=== PATIENT | female | born 1945 | race Caucasian/White ===

== ENCOUNTER 2024-09-15 10:02 | Observation (INO) ==
--- NOTE | 2024-08-24 08:27 | PAT Medication Instructions ---
Medication Instructions Date of Service August 24, 2024 Home Medications acetaminophen 650 mg tablet,extended release (Tylenol Arthritis Pain) 1,300 mg PO BID calcium 600 mg capsule 0 mg PO DAILY carboxymethylcellulose sodium 0.5 % eye drops (Refresh Tears) 1 drp ophthalmic (eye) BID diclofenac sodium 1 % topical gel 0 g topical UD PRN Pain duloxetine 20 mg capsule,delayed release 20 mg PO QAM fluticasone propionate 50 mcg/actuation nasal spray,suspension (Aller-Vipul) 2 spray intranasal QAM hydrocortisone-pramoxine 1 %-1 % rectal cream 1 applic [place] UD PRN hemorrhoid flare magnesium 200 mg tablet 400 mg PO DAILY metoprolol succinate 25 mg tablet,extended release 24 hr 25 mg PO QAM [id number] 8 mg-folic 400 mcg-K 50 mcg-lutein 300 mcg tablet (Centrum Silver Women) 1 tab PO DAILY pramoxine-benzyl alcohol 1 %-10 % topical gel (ITCH-X) 1 applic topical UD PRN bug bites rosuvastatin 10 mg tablet 10 mg PO QAM sodium hyaluronate (viscosup) 10 mg/mL(mw 2.4-3.6 million)intra-articular syringe (Euflexxa) 0 mg intra-articular UD zinc 50 mg tablet 50 mg PO DAILY ASK your prescriber and surgeon sodium hyaluronate (viscosup) 10 mg/mL(mw 2.4-3.6 million)intra-articular syringe (Euflexxa) 0 mg intra-articular UD STOP taking 24 hours before surgery diclofenac sodium 1 % topical gel 0 g topical UD PRN Pain hydrocortisone-pramoxine 1 %-1 % rectal cream 1 applic AK UD PRN hemorrhoid flare pramoxine-benzyl alcohol 1 %-10 % topical gel (ITCH-X) 1 applic topical UD PRN bug bites DO NOT take the morning of surgery calcium 600 mg capsule 0 mg PO DAILY magnesium 200 mg tablet 400 mg PO DAILY Centrum Silver Women) 1 tab PO DAILY zinc 50 mg tablet 50 mg PO DAILY Take morning of surgery With a small sip of water, OTHERWISE NOTHING TO EAT OR DRINK AFTER MIDNIGHT: acetaminophen 650 mg tablet,extended release (Tylenol Arthritis Pain) 1,300 mg PO BID carboxymethylcellulose sodium 0.5 % eye drops (Refresh Tears) 1 drp ophthalmic (eye) BID duloxetine 20 mg capsule,delayed release 20 mg PO QAM fluticasone propionate 50 mcg/actuation nasal spray,suspension (Aller-Vipul) 2 spray intranasal QAM metoprolol succinate 25 mg tablet,extended release 24 hr 25 mg PO QAM rosuvastatin 10 mg tablet 10 mg PO QAM Take evening before surgery acetaminophen 650 mg tablet,extended release (Tylenol Arthritis Pain) 1,300 mg PO BID carboxymethylcellulose sodium 0.5 % eye drops (Refresh Tears) 1 drp ophthalmic (eye) BID Other Notes If you have any questions please call us at [phone] or [phone] or [phone] or [phone]
--- NOTE | 2024-09-01 11:13 | Anesthesiology Consultation ---
Date of Service September 01, 2024 Assessment & Plan (1) Encounter for pre-operative examination: Chart Review Chart Review: Acceptable Risk for Surgery (pending cardio note 08/26/24, Holter monitor (if available), and upcoming ECHO 09/09/24) and Patient seen in Pre Admission Testing - Please fax for cardio note from 08/26/24 (Dr. Macario ([facility]), Holter monitor (done 08/26/24-08/27/24) - Please obtain ECHO scheduled 09/09/24 with [facility] - Await S PCP phone note response from 08/31/24 re: mild anemia (Patient usually follows with [facility] Cardio but was unable to get preop appt- was seen by [facility]- Dr Macario) - Patient is NOT an ideal OPJ candidate (currently 23 hour obs) Per PAT appt on 09/01/24, no recent illness/disease exposures, illness related symptoms, or recent illness/disease positive tests. Will leave to surgeon's discretion if preop Covid testing needed Patient seen by PCP 08/30/24= seen for preop evaluation. Check labs. As long as they are stable, patient is cleared for surgery form a general perspective. Will need to be cleared from a cardiac perspective by cardiology. Teaching & Discussion Pre-Anesthesia Teaching/Discussion Notes: Instructed NPO after midnight before surgery,except medications with 15 cc of water. Medication instructions provided according to the PAT guidelines. History Surgery Operation Date: 09/15/24 07:15 Proposed Procedures p Right Shoulder Reverse Total Shoulder Arthroplasty, Open Biceps Tenodesis - Osiel Caro MD Height/Weight Height: 5 ft 7 in Weight: 54.6 kg Allergies Allergy/AdvReac Type Severity Reaction Status Date / Time celecoxib Allergy Unknown Rash Verified 08/23/24 13:27 Sulfa (Sulfonamide Allergy Unknown ? rash, pt Verified 08/23/24 13:27 Antibiotics) not sure it was a long time ago Medications Home Medications Medication Instructions Recorded Confirmed Last Taken acetaminophen 650 mg 1,300 mg PO BID 08/23/24 08/23/24 Unknown tablet,extended release (Tylenol Arthritis Pain) calcium 600 mg capsule 0 mg PO DAILY 08/23/24 08/23/24 Unknown carboxymethylcellulose sodium 0.5 1 drp ophthalmic (eye) BID 08/23/24 08/23/24 Unknown % eye drops (Refresh Tears) diclofenac sodium 1 % topical gel 0 g topical UD PRN Pain 08/23/24 08/23/24 Unknown duloxetine 20 mg capsule,delayed 20 mg PO QAM 08/23/24 08/23/24 Unknown release fluticasone propionate 50 2 spray intranasal QAM 08/23/24 08/23/24 Unknown mcg/actuation nasal spray,suspension (Aller-Vipul) hydrocortisone-pramoxine 1 %-1 % 1 applic RI UD PRN hemorrhoid flare 08/23/24 08/23/24 Unknown rectal cream magnesium 200 mg tablet 400 mg PO DAILY 08/23/24 08/23/24 Unknown metoprolol succinate 25 mg 25 mg PO QAM 08/23/24 08/23/24 Unknown tablet,extended release 24 hr [id number] 8 mg-folic 400 1 tab PO DAILY 08/23/24 08/23/24 Unknown mcg-K 50 mcg-lutein 300 mcg tablet (Centrum Silver Women) pramoxine-benzyl alcohol 1 %-10 % 1 applic topical UD PRN bug bites 08/23/24 08/23/24 Unknown topical gel (ITCH-X) rosuvastatin 10 mg tablet 10 mg PO QAM 08/23/24 08/23/24 Unknown sodium hyaluronate (viscosup) 10 0 mg intra-articular UD 08/23/24 08/23/24 Unknown mg/mL(mw 2.4-3.6 million)intra-articular syringe (Euflexxa) zinc 50 mg tablet 50 mg PO DAILY 08/23/24 08/23/24 Unknown Past Medical History Medical History Anxiety History of fracture of pelvis (04/2024) "hairline" - healed/continues with pt. History of gastroesophageal reflux (GERD) well controlled and stable History of postoperative nausea and vomiting Hyperlipidemia Osteopenia Paroxysmal atrial tachycardia dx 2021- well controlled with Metoprolol - follows with [facility] cardio- stable and well controlled at 02/2024 annual visit Exercise / Class Metabolic Activity III < 4 Walking/Shop/Light housework (one flight of stairs - no chest pain, mild SOB ) Past Family History Family History Sister Family history of reaction to anesthesia with ear operation, pt was told they almost lost her, i think they said she did stop breathing. unknown further details. Past Surgical History Surgical History History of colonoscopy History of left hip replacement History of right hip replacement History of surgery on right wrist for fx/denies hardware. Past Anesthesia History No Hx of Anesthesia Complications (with exception to PONV) and No Family Hx of Anesthesia Complications (with exception to sister- had surgery - "stopped breathing" - specifics unknown - patient denies personal issues ) History of PONV History of PONV (significant ) and Hx of Motion Sickness Social History Smoking Status: Never smoker Do You Dip or Chew Tobacco: No Alcohol type: hard liquor alcohol intake frequency: other Alcohol Intake Frequency Comment: 2-3 drinks per day Hx Substance Use: No substance use type: does not use Review of Systems - Jun 2024- was having SOB (similar to symptoms in 2020- started on Metoprolol)- has resolved (felt possibly due to hip fracture and healing process) (cardio aware- reason for updated Holter monitor and upcoming ECHO) - Chronic cough due to chronic post nasal drip- stable/mild - Hx of blood transfusion - with previous surgeries (years ago) Patient denies chest pain, current shortness of breath, wheezing, palpitations. No hx of seizures, stroke, PR, apnea/snoring. No hx of blood clots Physical Exam Vital Signs VITALS BP 151/88 (usually well controlled) P 60 TEMP 97.8 SP02 97% RESP 16 Constitutional no acute distress ENMT Mouth: no TMJ clicking Thyromental Distance: > or= 3.5 Finger Breadths (3.5) Mallampati Class: I Neck neck extension not limited Respiratory normal respiratory effort; no respiratory distress Auscultation: lungs clear to auscultation bilaterally; no wheezes Cardiovascular Rate/Rhythm: regular rate and regular rhythm Heart Sounds: no murmur Vessels: no carotid bruit Musculoskeletal Spine: no pain with cervical ROM Extremities: extremities normal to inspection Psychiatric Orientation: alert Lab Results Anesthesia Preop Results Results Anesthesia Widget: PTT 31 Seconds (21-31) 09/01/24 Urine Color Yellow 09/01/24 Urine Appearance Turbid (Clear) A 09/01/24 Urine pH 7.0 (4.5-7.5) 09/01/24 Urine Specific [place] 1.022 (1.000-1.030) 09/01/24 Urine Protein Negative (Negative) 09/01/24 Urine Glucose (UA) Negative (Negative) 09/01/24 Urine Ketones Trace (Negative) H 09/01/24 Urine Blood Negative (Negative) 09/01/24 Urine Nitrite Negative (Negative) 09/01/24 Urine Bilirubin Negative (Negative) 09/01/24 Urine Urobilinogen Negative (Negative) 09/01/24 Urine Leukocyte Esterase Negative (Negative) 09/01/24 Urine WBC (Auto) 0-5 /hpf (0-5) 09/01/24 Urine RBC (Auto) 6-10 /hpf (0-2) H 09/01/24 Urine Hyaline Casts (Auto) 0-2 /lpf (0-2) 09/01/24 Urine Epithelial Cells (Auto) 0-2 /hpf (0-2) 09/01/24 Urine Bacteria (Auto) None Seen (None Seen) 09/01/24 Blood Type A Positive 09/01/24 Antibody Screen NEGATIVE 09/01/24 Testing Laboratory Results 08/30/24= WBC: 6.96 H/H: 11.3/37.7 (mild anemia- PCP aware) PLATELETS: 394 SODIUM: 141 POTASSIUM: 4.3 CHLORIDE: 98 CO2: 31 BUN: 19 CREATININE: 0.6 GLUCOSE: 75 PT: 13.3 INR: 1.0 Electrocardiogram Date: 08/26/24 Findings: + NSR @ (63bpm) Minimal voltage criteria for LVH, may be normal variant Early repolarization Chest X-Ray Date: 09/01/24 Findings: + NAD FINDINGS: Heart size and pulmonary vasculature are normal. Lungs are mildly hyperexpanded. No effusion or consolidation. Stress Test Date: 03/04/23 Type: DSE Exercise ECHO is normal without resting LV wall motion abnormalities or inducible ischemia MPHR 90% EKG response was normal Patient give IV dobutamine. Normal HR and BP response to dobutamine infusion. Calculated EF 70% Mild to moderate MR Mild TR
--- NOTE | 2024-09-13 19:35 | History & Physical Report ---
Date of Service September 13, 2024 Assessment & Plan (1) Osteoarthritis of right glenohumeral joint: Plan: Severe end-stage glenohumeral osteoarthritis right shoulder with rotator cuff tendinopathy as well and biceps tendinopathy. Best treatment option is to proceed with reverse total shoulder arthroplasty with biceps tenodesis. (2) Tendinopathy of right rotator cuff: (3) Biceps tendinopathy of right upper extremity: History of Present Illness Chief Complaint: Chronic right shoulder pain Primary Care Provider: NO PCP Chronic right shoulder pain failed conservative management presenting for shoulder replacement Patient denies headaches, sweats, fevers, chills, double vision, blurred vision, cough, sore throat, dysphagia, chest pain, sob at rest, wheezing, n/v/d/c, numbness, tingling, fatigue, urinary symptoms, mood disorders. ROS positive for shortness of breath with activity like running or shoveling or climbing stairs, regular heartbeat with palpitations, osteoarthritis of spine, acid reflux. Allergies Allergy/AdvReac Type Severity Reaction Status Date / Time celecoxib Allergy Unknown Rash Verified 08/23/24 13:27 Sulfa (Sulfonamide Allergy Unknown ? rash, pt Verified 08/23/24 13:27 Antibiotics) not sure it was a long time ago Home Medications Medication Instructions Recorded Confirmed Type acetaminophen 650 mg 1,300 mg PO BID 08/23/24 08/23/24 History tablet,extended release (Tylenol Arthritis Pain) calcium 600 mg capsule 0 mg PO DAILY 08/23/24 08/23/24 History carboxymethylcellulose sodium 0.5 1 drp ophthalmic (eye) BID 08/23/24 08/23/24 History % eye drops (Refresh Tears) diclofenac sodium 1 % topical gel 0 g topical UD PRN Pain 08/23/24 08/23/24 History duloxetine 20 mg capsule,delayed 20 mg PO QAM 08/23/24 08/23/24 History release fluticasone propionate 50 2 spray intranasal QAM 08/23/24 08/23/24 History mcg/actuation nasal spray,suspension (Aller-Vipul) hydrocortisone-pramoxine 1 %-1 % 1 applic [place] UD PRN hemorrhoid flare 08/23/24 08/23/24 History rectal cream magnesium 200 mg tablet 400 mg PO DAILY 08/23/24 08/23/24 History metoprolol succinate 25 mg 25 mg PO QAM 08/23/24 08/23/24 History tablet,extended release 24 hr [id number]-[id number] 8 mg-folic 400 1 tab PO DAILY 08/23/24 08/23/24 History mcg-K 50 mcg-lutein 300 mcg tablet (Centrum Silver Women) pramoxine-benzyl alcohol 1 %-10 % 1 applic topical UD PRN bug bites 08/23/24 08/23/24 History topical gel (ITCH-X) rosuvastatin 10 mg tablet 10 mg PO QAM 08/23/24 08/23/24 History sodium hyaluronate (viscosup) 10 0 mg intra-articular UD 08/23/24 08/23/24 History mg/mL(mw 2.4-3.6 million)intra-articular syringe (Euflexxa) zinc 50 mg tablet 50 mg PO DAILY 08/23/24 08/23/24 History Past Med/Surg History Problem List (Updated 09/13/24 @ 19:34 by Osiel Caro MD) Biceps tendinopathy of right upper extremity Tendinopathy of right rotator cuff Osteoarthritis of right glenohumeral joint Encounter for pre-operative examination Medical History Aortic stenosis Mild- noted on 09/09/24 ECHO Paroxysmal atrial tachycardia dx 2021- well controlled with Metoprolol - follows with [facility] cardio- stable and well controlled at 02/2024 annual visit Osteopenia History of fracture of pelvis (04/2024) "hairline" - healed/continues with pt. History of postoperative nausea and vomiting Anxiety History of gastroesophageal reflux (GERD) well controlled and stable Hyperlipidemia Surgical History History of surgery on right wrist for fx/denies hardware. History of left hip replacement History of right hip replacement History of colonoscopy Family History Sister Family history of reaction to anesthesia with ear operation, pt was told they almost lost her, i think they said she did stop breathing. unknown further details. Social History Smoking Status: Never smoker Second Hand Exposure: Yes; Do You Dip or Chew Tobacco: No; Hx Substance Use: No Preferred Language: Thai Communication Ability: Effective Vp Research Required: No Beliefs That Will Affect Care: None Current Living Situation: Spouse Other Information That Helps Us Care for You: No Feels Safe at Home: Yes Assistive Devices: Glasses Review of Systems All systems reviewed & are unremarkable except as noted in HPI & below Physical Exam Constitutional: WD/WN, vitals as above Respiratory: normal respiratory effort; no respiratory distress Cardiovascular: Rate/Rhythm: regular rate and regular rhythm Musculoskeletal: Right shoulder exam with abnormal rhythm glenohumeral crepitation positive speeds belly press Larry and Neer signs. Painful decreased range of motion w ith 100 degrees of flexion 70 degrees abduction 80 degrees external rotation and 40 degrees internal rotation. Opposite shoulder also has decreased range of motion not as severe. Distal neurocirculatory exam all normal. Skin: no rashes, warm and dry Neurologic: normal touch/pain/proprioception Psychiatric: A+Ox3, euthymic affect Results & Data Diagnostic Findings X-rays demonstrate grade 4 osteoarthritis glenohumeral joint. MRI demonstrates supraspinatus tendinopathy and areas of full-thickness tearing and marked inflammation around the shoulder joint synovitis and fluid collections around the subscapularis tendon. There is tenosynovitis of the biceps tendon with biceps tendinopathy.
[~2024-09-15 10:02] MED LIST: BUPIVACAINE 0.5 % 5 MG/1 ML PF 10ML VIAL ONE
[2024-09-15] MEDS ORDERED: LIDOCAINE 2% 2 ML VIAL/AMP(20MG/ML) INFIL ONE ×3 (10:08→13:02)
[2024-09-15] MEDS ORDERED: PROPOFOL IV EMULSION 10 MG/ML 20 ML VIAL IV ONE (10:08)
[2024-09-15] MEDS ORDERED: fentaNYL citrate PF 100 MCG/2 ML VIAL ONE (10:08)
[2024-09-15] MEDS ORDERED: ONDANSETRON INJ 2 MG/ML 2 ML VIAL ONE (10:08)
[2024-09-15] MEDS ORDERED: MIDAZOLAM HCL 1 MG/ML 2ML VIAL ONE (10:08)
[2024-09-15] MEDS ORDERED: ROCURONIUM BROMIDE 10 MG/ML 5 ML VIAL IV ONE ×2 (10:10→14:23)
[2024-09-15] MEDS: LR 15ML/HR IV SCH (10:37)
[2024-09-15] MEDS: FAMOTIDINE 20 MG TAB PO SCH (10:38)
[2024-09-15] MEDS: ACETAMINOPHEN 500 MG TAB PO SCH ×2 (10:38→22:30)
[2024-09-15] MEDS: METOCLOPRAMIDE HCL 10 MG TABLET PO SCH (10:38)
[2024-09-15] MEDS: GABAPENTIN 300 MG CAP PO SCH (10:39)
[2024-09-15] MEDS: LR 60ML/HR IV SCH (10:39)
[2024-09-15] MEDS: dexAMETHasone**PF** 10 MG/ML VIAL IV SCH (10:39)
[2024-09-15] MEDS ORDERED: ONDANSETRON INJ 2 MG/ML 2 ML VIAL IV PRN (11:17)
[2024-09-15] MEDS ORDERED: fentaNYL citrate PF 100 MCG/2 ML VIAL IV PRN (11:17)
[2024-09-15] MEDS ORDERED: PROMETHAZINE HCL 6.25 MG in SODIUM CHLORIDE 0.9% 50 ML IV PRN (11:17)
[2024-09-15] MEDS ORDERED: HYDROmorphone INJ 1 MG/ML SYRINGE IV PRN (11:17)
[2024-09-15] MEDS ORDERED: ePHEDrine sulfate 50 MG/ML AMP IV PRN (11:17)
[2024-09-15] MEDS ORDERED: ATROPINE SULFATE 0.1 MG/ML 10ML SYR IV PRN (11:17)
[2024-09-15] MEDS: TRANEXAMIC ACID 1,000 MG **IV Pre-op IV SCH (12:28)
--- NOTE | 2024-09-15 12:30 | History & Physical Bridge Note ---
Date of Service September 15, 2024 History & Physical Bridge Note I have examined the patient, reviewed the History & Physical and in the interval since the performance of the History & Physical I have noted the following changes of clinical significance: no changes noted
[2024-09-15] MEDS: ceFAZolin 2000MG 2,000 MG/15 ML SYR IV SCH ×2 (12:57→20:35)
[2024-09-15] MEDS ORDERED: ePHEDrine sulfate 50 MG/5 ML SYR ONE (13:21)
[2024-09-15] MEDS ORDERED: SUGAMMADEX SODIUM 200 MG/2 ML VIAL IV ONE ×2 (13:38→15:01)
--- OUTSIDE RECORDS SUMMARY | 2024-09-15 14:20 | External Medical Summary | Summary of Care ---
Author Name Unknown Organization [facility] Address [address] [facility] [place] [address] Phone [phone] Care Team Providers Care Insurance Salesperson Name Role Phone Santhosh Lyle MD Primary Care Provider [phone] Reason for Visit * Reason Onset Date Comments Test Results Lab 09/03/2024 Encounter Details Date Type Department Care Team (Late st Contact Info) Description 09/03/2024 Telephone [facility] [place] [address] [place] [address] Alicia Enriquez MD [address] [place] [address] Test Results Lab Allergies Active Allergy Reactions Criticality Noted Date Comments Bactrim 11/24/2013 unaware Celecoxib 11/24/2013 rash Alendronate 03/08/2021 Bone necrosis of jaw Sulfa Antibiotics Hives 12/10/2011 Sulfamethoxazole 03/04/2024 documented as of this encounter (statuses as of 09/10/2024) Medications MAGNESIUM 400 MG PO CAPS one daily Active Multiple Vitamins-Mineral s (CENTRUM SILVER) Tablet Take 1 Tablet by mouth in the morning. Active Fluticasone Propionate 50 MCG/ACT Nasal Suspension Administer 1 [place] into nostril in the morning. Active Calcium Carb-Cholecalcif va 500-400 MG-UNIT Oral Tablet Take 2 Tabs by mouth daily. Active Carboxymeth-Glyc luisa-Polysorb 0.5-1-0.5 % Ophthalmic Solution Instill into eye 2 times a day. Active Pramoxine-Benzyl Alcohol 1-10 % External Gel Apply topically to affected area. Apply to bites Active Zinc 50 MG Oral Capsule Take 1 Capsule by mouth in the morning. Active Azelastine HCl 0.1 % Nasal Solution Administer 2 Sprays into nostril in the morning. 30 mL 12 2 Active Additional Information Patient not taking.Reported on 08/30/2024 Triamcinolone Acetonide 0.5 % External Cream (Aristocort)Mitzy cations:Rash and nonspecific skin eruption To affected area once a day or as needed for itching. 15 g 1 3 Active Additional Information Patient not taking.Reported on 05/05/2024 Polyethylene Glycol 3350 17 GM/SCOOP Oral Powder (MiraLax) Take 17 g by mouth in the morning. One cap full in juice, to effect 1 stool per day. .. 510 g 1 3 Active Additional Information Patient not taking.Reported on 05/05/2024 Diclofenac Sodium 1 % External Cream Apply topically to affected area. Apply to right knee 3x a day Active Hydrocortisone (Perianal) 2.5 % External Cream (Procto-Med HC) Administer into the rectum 2 times a day as needed for Hemorrhoids. Active Euflexxa 20 MG/2ML Intra-articular Solution Prefilled Syringe (Sodium Hyaluronate (Viscosup)) Inject into the joint once. Active Camphor-Menthol 0.5-0.5 % External Lotion (Sarna) Apply topically to affected area as needed for Itching. Apply to arms Active Acetaminophen 500 MG Oral Tablet (Tylenol) Take 2 Tablets by mouth every 8 hours as needed for Pain, Mild or Pain, Moderate. 30 Tablet 04/27/2024 9:37 AM EST 4 Active oxyCODONE HCl 5 MG Oral Tablet (Oxy IR) Take 1 Tablet by mouth every 8 hours as needed for Pain, Severe. 20 Tablet 04/27/2024 9:37 AM EST 4 Active Additional Information Patient not taking.Reported on 05/05/2024 Lidocaine 4 % External Patch (Aspercreme) Place 1 Patch over 12 hours topically on the skin daily. 30 Patch 4 Active Additional Information Patient not taking.Reported on 08/30/2024 Metoprolol Succinate ER 25 MG Oral Tablet Extended Release 24 Hour (toPROL XL) TAKE 1 TABLET BY MOUTH DAILY IN THE MORNING 30 Tablet 11 5 Active documented as of this encounter (statuses as of 09/10/2024) Active Problems Problem Noted Date Diagnosed Date Closed nondisplaced fracture of posterior wall of left acetabulum 04/25/2024 Fall 04/25/2024 Ambulatory dysfunction 04/25/2024 PAT (paroxysmal atrial tachycardia) 01/05/2024 Family history of dementia 01/03/2023 Primary osteoarthritis of right knee 03/08/2021 Hip joint replacement status 11/06/2019 Depression with anxiety 07/14/2018 Lymphocytic colitis 10/03/2017 History of osteoporosis Dyslipidemia Overview (10/09/2015): ICD-10 update of inactive term documented as of this encounter (statuses as of 09/10/2024) Resolved Problems Problem Noted Date Diagnosed Date Resolved Date Numerous skin moles 12/27/2021 12/28/19 22 Closed fracture of left hip 11/06/2019 01/31/2020 Gait abnormality 11/06/2019 01/31/2020 Pain of left hip joint 11/06/201901/30 Avulsion fracture of calcaneus 05/15/2015 07/14/2018 AK (actinic keratosis) 06/16/201407/14 Other seborrheic keratosis 06/16/2014 1 07/25/2015 Solar lentigo 06/16/2014 07/14/2018 Unspecified disease of nail 01/01/2012 05/24/2016 Overview (09/08/2024): Has a tiny sathish of pigment seemingly in the nail plate distally and radially on the L thumbnail-she just noticed it Suggest that she watch and make sure it migrates outward over the next couple of months; I suspect it is a FB ICD-10 Update of Inactive Term Mole of skin 12/10/2011 05/24/2016 Overview (09/08/2024): Tip of L great toe 0.3cm for <2cm Will follow in 6M Chandra Eason MD 12/10/2011 10:06 AM ICD-10 Update of Inactive Term NONE 01/25/2009 01/25/2009 Favor Benign Papule at L Nasal Tip 01/25/2009 07/14/2018 Anemia 07/14/2018 Overview (03/10/2017): ICD-10 update of inactive term documented as of this encounter (statuses as of 09/10/2024) Immunizations Name Administration Dates Next Due COVID-19 mRNA, LNP-s, No Pre serve, 2-Dose Series (Pfizer) 01/01/2022,03/31/2021,09/12/2020,08/22 COVID-19, MRNA-LNP, PF, 30 M CG/0.3 mL, 12 YRS AND ABOVE, IM (PFIZER-Comirnaty) 02/23/2024,04/25/2023 Pneumococcal Conjugate Vacc, 13 Valent (Prevnar) 11/08/2015 Pneumococcal Conjugate Vacci ne, 20-valent ([id number]) 05/05/2024 Pneumococcal Polysaccharide PPV23 (Pneumovax) 12/09/2011 Season Influenza, Quad, PF, Adjuvanted, 65+ Yrs, IM (FLUAD) 03/23/2020 Seasonal Influenza Vac., MDV , IM, 0.5 mL (Fluzone) 03/29/2014,03/16/2013,03/18/2012,03/20,03/22/2010,03/29/2009,03/23/2008 Seasonal Influenza, PF, 6 M & above, IM , (FluLaval or Fluzone) 03/17/2019,03/16/2018,03/28/2017 Seasonal Influenza, Quadriva lent Hd (Fluzone Hd) 02/23/2024,02/07/2023,03/08/2021 Seasonal Influenza, Quadriva lent, No Preserve, IM 03/12/2016,03/22/2015 TD, Preservative Free 01/13/2019 TDAP, Age 7 and older, IM (Adacel) 01/03/2010 Varicella Zoster Vaccine Alexey lt (Zostavax) 09/08/2007 Zoster Vaccine Recombinant (Shingrix) 07/16/2019 ,01/13/2019 documented as of this encounter Social History Tobacco Use Types Packs/Day Years Used Date Smoking Tobacco: Never Smokeless Tobacco: Never Comments: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 Never true 08/31/19 25 Within the past 12 months, t he food you bought just didn't last and you didn't have money to get more. Never true 08/30/2024 Childcare Answer Date Recorded Do you feel overwhelmed with taking care of a child, family member or friend? No 08/30/2024 Does your family need help f inding childcare? (Household - for ages 0-17 years) Not on file 08/30/2024 Clothing Answer Date Recorded Have you been unable to get clothing when it was really needed? No 08/30/2024 Is your family able to get c lothes or diapers when needed? (Household - for ages 0-17 years) Not on file 08/30/2024 Personal Safety Answer Date Recorded Do you feel unsafe or have concerns for your saf ety? No 08/30/2024 Do you have concerns for you r family's safety? (Household - for ages 0-17 years) Not on file 08/30/2024 Utilities Answer Date Recorded Do you have trouble paying y our heating, water, or electric bill? No 08/30/2024 Is your family able to pay t he heat, water, or electric bill? (Household - for ages 0-17 years) Not on file 08/30/2024 Does your family have access to good internet? (Household - for ages 0-17 years) Not on file 08/30/2024 Employment Status Answer Date Recorded Are you unemployed or without regular income? No 08/30/2024 Does the household have a re gular source of income? (Household - for ages 0-17 years) Not on file 08/30/2024 Social Connections Answer Date Recorded How often do you feel lonely or isolated from th ose around you? Rarely 08/30/2024 Financial Resource Strain Answer Date R ecorded Do you have any trouble payi ng for your medications, or do you think you might in the future? No 08/30/2024 Does your family have troubl e paying for medicine? (Household - for ages 0-17 years) Not on file 08/30/2024 Transportation Needs Answer Date Record ed Do you have trouble getting a ride to medical visits or work? (Adult - for ages 18 years and over) Not on file 08/30/2024 Does your family have a hard time getting a ride to doctors visits? (Household - for ages 0-17 years) Not on file 08/30/2024 Has lack of transportation k ept you from medical appointments, meetings, work, or from getting things needed for daily living? Check all that apply. No 08/30/2024 Do you (or your family) have trouble finding or paying for a ride (transportation)? (Household - for ages 0-17 years) Not on file 08/30/2024 Housing Stability Answer Date Recorded Do you currently live in a s helter or have no steady place to sleep at night? No 08/30/2024 Do you think you are at risk of becoming homeless? (Adult - for ages 18 years and over) Not on file 08/30/2024 Does your family worry about paying for your home or becoming homeless? (Household - for ages 0-17 years) Not on file 0 08/30/2024 Are you homeless or worried that you might be in the future? No 08/30/2024 Are you (or your family) rabia eless or worried that you might be in the future? (Household - for ages 0-17 years) Not on file Food Insecurity Answer Date Recorded Do you need food for this week? No 04/25/2024 Are you able to get enough f ood for your family? (Household - for ages 0-17 years) Not on file 04/25/2024 Does your family need food t his week? (Household - for ages 0-17 years) Not on file 04/25/2024 Do you always have enough fo od for your family? (Household - for ages 0-17 years) Not on file 04/25/2024 Food Insecurity Answer Date Recorded Within the past 12 months, y ou worried that your food would run out before you got the money to buy more. Never true 08/31/19 25 Within the past 12 months, t he food you bought just didn't last and you didn't have money to get more. Never true 08/30/2024 Do you need food for this week? 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 Answer Date of Assessment Author No 04/25/2024 7:04 PM Holly Juarez RN * Are you blind or do you have serious difficulty seeing, even when wearing glasses? Answer Date of Assessment Author No 04/25/2024 7:04 PM Holly Juarez RN * Do you have serious difficulty walking or climbing stairs? (5 years old or older) Answer Date of Assessment Author No 04/25/2024 7:04 PM Holly Juarez RN * Do you have difficulty dressing or bathing? (5 years old or older) Answer Date of Assessment Author No 04/25/2024 7:04 PM Holly Juarez RN * Because of a physical, mental, or emotional condition, do you have difficulty doing errands alone such as visiting a doctor’s office or shopping? (15 years old or older) Answer Date of Assessment Author No 04/25/2024 7:04 PM Holly Juarez RN documented as of this encounter Mental Status * Because of a physical, mental, or emotional condition, do you have serious difficulty concentrating, remembering, or making decisions? (5 years old or older) Answer Entry Date Author No 04/25/2024 7:04 PM Holly Juarez RN documented in this encounter Miscellaneous Notes * Telephone Encounter - Wally Toribio LPN - 09/10/2024 10:03 AM EDT "Patient having R shoulder replacement surgery on 09/15 at [facility] with Dr. Caro." - Pre-op appt 08/30/2024 The patients iron is on the low end of normal. Please advise. * Telephone Encounter - Cisco Wray OSA - 09/10/2024 9:39 AM EDT Needs clarification on if the procedure needs to be postponed until the lab work is completed or isit okay to proceed with procedure pcp with follow up with the anemia post operatively? * Telephone Encounter - Urvashi Farr LPN - 09/08/2024 3:47 PM EDT Patient aware and verbalized understanding * Telephone Encounter - Gaby Smith OSA - 09/08/2024 3:40 PM EDT Reason for patient's call: Pt returning call; message relayed and has further questions as to when these labs need to be competed. Caller was transferred to [place] at the nurse line. * Telephone Encounter - Wally Toribio LPN - 09/08/2024 10:00 AM EDT I left a message with the pt's Roddy to have the patient call back. If the patient calls back please inform her that she needs nonfasting labs for B12, Iron, and FolicAcid. She can do that any [facility] lab facility. * Telephone Encounter - Wally Toribio LPN - 09/07/2024 2:40 PM EDT VM box not setup If the patient calls back please inform her that she needs nonfasting labs for B12, Iron, and FolicAcid. She can do that any [facility] lab facility. * Addendum Note - Joo Parada PA-C - 09/07/2024 2:21 PM EDTAddended by: JOO PARADA on: 09/07/2024 02:21 PM Modules accepted: Orders * Telephone Encounter - Joo Parada PA-C - 09/07/2024 2:21 PM EDT Add on iron studies, folate, and B12 level. * Telephone Encounter - Brittani Harmon LPN - 09/07/2024 1:17 PM EDT Patient aware and has not noticed any bruising or bleeding. * Telephone Encounter - Alicia Enriquez MD - 09/07/2024 12:38 PM EDT Please try to get pt her message again * Telephone Encounter - Alicia Enriquez MD - 09/03/2024 9:03 AM EDT Patient did not read her Handprint message: " You were a bit anemic on your labs. Have you noticed any abnormal bruising or bleeding? Joo Parada PA-C Please check with the patient documented in this encounter Plan of Treatment Upcoming Encounters Date Type Department Care Team (Late st Contact Info) Description 01/03/2025 8:30 AM EDT Laboratory Laboratory, [place] [address] [place] [id number] [place], Lab [address] [place] [address] 01/05/2025 9:00 AM EDT Office Visit Family Practice, [place] [address] [place] [address] Santhosh Lyle MD [address] [place] [address] 02/28/2025 1:30 PM EDT Office Visit Dermatology, [place] [address] [address] [place] [address] Griselda Woodard PA-C [address] [place] [address] 03/09/2025 10:00 AM EDT Office Visit Cardiology, [place] [address] [place] [address] Daisy Sprague PA-C [address] [place] [address] Pending Results Name Type Priority Associated Diagnoses Date /Time FOLIC ACID Lab Routine Anemia, unspecified type 09/09/2024 7:33 AM EDT Scheduled Orders Name Type Priority Associated Diagnoses Orde r Schedule FOLIC ACID Lab Routine Anemia, unspecified type Expected: 09/07/2024 (Approximate), Expires: 09/07/2025 Scheduled Procedures Name Priority Associated Diagnoses Date/Ti me COLONOSCOPY FLEXIBLE PROXIMA L DIAGNOSTIC Recall Screening for colon cancer Health Maintenance Due Date Last Done Comments Adult Wellness Visit 2012 COVID-19 Vaccine ( season) 2024 02/23/2024, 04/25/2023, 01/01/2022, Additional history exists Depression Monitoring 01/04/2025 01/05/2024 DXA Scan 07/15/2027 07/15/2023, 10/2020, 07/07/2018, Additional history exists DTap/Tdap Vaccines (3 - Td or Tdap) 01/13/2029 01/13/2019, 01/03/2010 Colonoscopy 08/21/2033 08/22/2023, 08/07, 05/23/2017, Additional history exists Fecal Occult Blood Test Discontinued 07/08/2016 Zoster Vaccines Completed 07/16/2019, 12/2018, 09/08/2007 Influenza Vaccine (FLU shot) Completed 02/23/2024, 02/07/2023, 03/08/2021, Additional history exists Pneumococcal Vaccine: 50+ Years Completed 05/05/2024, 11/08/2015, 12/09/2011 HPV (Gardasil) Vaccine Aged Out No lo nger eligible based on patient's age to complete this topic Hepatitis B Vaccine Aged Out No longe r eligible based on patient's age to complete this topic MENINGOCOCCAL (MENACTRA/MENVEO) Aged Out No longer eligible based on patient's age to complete this topic Meningitis B Vaccine (Bexsero/Trumemba) Aged Out No longer eligible based on patient's age to complete this topic documented as of this encounter Medical Devices Not on filedocumented as of this encounter Results * VITAMIN B12 (09/09/2024 7:33 AM EDT) Vitamin B12 714 232 - 1,245 pg/mL 09/09/2024 7:41 PM EDT [facility] Blood Venous blood specimen / Unknown Venipuncture / Unknown 09/09/2024 7:33 AM EDT 09/09/2024 7:34 AM EDT us Joo Parada PA-C LAB BLOOD ORDERABLES Final Result [facility] [address] [place] [address] * (ABNORMAL) IRON SCREEN, INCLUDING TIBC (09/09/2024 7:33 AM EDT) Iron 35 33 - 151 ug/dL 09/09/2024 5:44 PM EDT [facility] Iron Binding Capacity 277 250 - 425 ug/dL 09/09/2024 5:44 PM EDT [facility] Transferrin Saturation Percent 13(L) 15 - 55 % 09/09/2024 5:44 PM EDT [facility] Blood Venous blood specimen / Unknown Venipuncture / Unknown 09/09/2024 7:33 AM EDT 09/09/2024 7:34 AM EDT us Joo Matty Parada PA-C LAB BLOOD ORDERABLES Final Result [facility]AT[facility] [address] [place] [address] documented in this encounter Visit Diagnoses Diagnosis Anemia, unspecified type- Primary documented in this encounter Advance Directives * Full Code (Latest Code Status on File) Date Activated Date Inactivated Comments 04/25/2024 6:33 PM 04/27/2024 4:43 PM This order reflects the patients wishes and were consensually agreed upon. Question Answer Comments Discussion of Advance Directives occurred with: Patient * Full Code Date Activated Date Inactivated Comments 11/06/2019 5:30 PM 11/09/2019 8:09 PM This order re flects the patients wishes and were consensually agreed upon. Question Answer Comments Discussion of Advance Directives occurred with: Not Discussed Does the patient have a Living Will? No Care Teams Insurance Salesperson Relationship Specialty Start Date End Date Santhosh Lyle MD [address] [place] [address] PCP - General Family Medicine 07/06/20 documented as of this encounter
--- OUTSIDE RECORDS SUMMARY | 2024-09-15 14:20 | External Medical Summary | Summary of Care ---
Author Name Unknown Organization [facility] Address [address] [address] Phone [phone] Care Team Providers Care Rubber Factory Worker Name Role Phone Santhosh Lyle MD Primary Care Provider [phone] Encounter Details Date Type Department Care Team (Late st Contact Info) Description 09/09/2024 Result Scan Unspecified Department <No scans attached> Allergies Active Allergy Reactions Criticality Noted Date Comments Bactrim 11/24/2013 unaware Celecoxib 11/24/2013 rash Alendronate 03/08/2021 Bone necrosis of jaw Sulfa Antibiotics Hives 12/10/2011 Sulfamethoxazole 03/04/2024 documented as of this encounter (statuses as of 09/13/2024) Medications MAGNESIUM 400 MG PO CAPS one daily Active Multiple Vitamins-Mineral s (CENTRUM SILVER) Tablet Take 1 Tablet by mouth in the morning. Active Fluticasone Propionate 50 MCG/ACT Nasal Suspension Administer 1 [place] into nostril in the morning. Active Calcium [...] THE MORNING 30 Tablet 11 5 Active DULoxetine HCl 20 MG Oral Capsule Delayed Release Particles (Cymbalta)Indica tions:Depression with anxiety TAKE 1 CAPSULE EVERY MORNING 90 Capsule 3 5 Active Rosuvastatin Calcium 10 MG Oral Tablet (Crestor)Indicat ions:Dyslipidemi a TAKE 1 TABLET EVERY MORNING 90 Tablet 3 5 Active documented as of this encounter (statuses as of 09/13/2024) Active Problems Problem Noted Date Diagnosed Date [...] as of this encounter (statuses as of 09/13/2024) Resolved Problems Problem Noted Date Diagnosed Date [...] for <2cm Will follow in 6M Chandra aEson MD 12/10/2011 10:06 AM ICD-10 Update of Inactive Term NONE 01/25/2009 01/25/2009 Favor Benign Papule at L Nasal Tip 01/25/2009 07/14/2018 Anemia 07/14/2018 Overview (03/10/2017): ICD-10 update of inactive term documented as of this encounter (statuses as of 09/13/2024) Immunizations Name Administration Dates Next Due COVID-19 mRNA, LNP-s, No Pre serve, 2-Dose Series (Pfizer) 01/01/2022,03/31/2021,09/12/2020,08/22 COVID-19, MRNA-LNP, PF, 30 M CG/0.3 mL, 12 YRS AND ABOVE, IM (PFIZER-Comirnaty) 02/23/2024,04/25/2023 Pneumococcal Conjugate Vacc, 13 Valent (Prevnar) 11/08/2015 Pneumococcal Conjugate Vacci ne, 20-valent ([id number]) 05/05/2024 Pneumococcal Polysaccharide PPV23 (Pneumovax) 12/09/2011 Season [...] 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 Alcohol Use Standard Drinks/Week Comments Yes [...] 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 Not on file Not on file Not [...] Holly Juarez RN documented in this encounter Plan of Treatment Upcoming Encounters Date Type Department Care Team (Late st Contact Info) Description 01/03/2025 8:30 AM EDT Laboratory Laboratory, [place] [address] [place] [id number] [place], [place] [address] [place] [address] 01/05/2025 9:00 AM EDT Office Visit Family Practice, [place] [address] [facility] [place] [address] Santhosh Lyle MD [address] [facility] [address] [place] [address] 02/28/2025 1:30 PM EDT Office Visit Dermatology, [place] [address] [facility] [address] [place] [address] Griselda Woodard PA-C [address] [place] [address] 03/09/2025 10:00 AM EDT Office Visit Cardiology, [place] [address] [place] [address] Daisy Sprague PA-C [address] [place] [address] Scheduled Procedures Name Priority Associated Diagnoses Date/Ti me COLONOSCOPY FLEXIBLE PROXIMA L DIAGNOSTIC Recall Screening for colon cancer Health Maintenance Due Date Last Done Comments Adult Wellness Visit 2012 COVID-19 Vaccine ( season) 2024 02/23/2024, 04/25/2023, 01/01/2022, Additional history exists Depression Monitoring 01/04/2025 01/05/2024 DXA Scan 07/15/2027 07/15/2023, 0210/2020, 07/07/2018, Additional history exists DTap/Tdap Vaccines (3 [...] Not on filedocumented as of this encounter Procedures Procedure Name Priority Date/Time Associated Diagnosis Comments ECHOCARDIOLOGY SCANNED RESULT 09/09/2024 documented in this encounter Results * ECHOCARDIOLOGY SCANNED RESULT (09/09/2024) 09/09/2024 us No Physician Data Unknown ECHOCARDIOLOGY Final Result documented in this encounter Advance Directives * [...] have a Living Will? No Care Teams Rubber Factory Worker Relationship Specialty Start Date End Date Santhosh Lyle MD [address] [facility] [place] [address] PCP - General Family Medicine 07/06/20 documented as of this encounter
--- OUTSIDE RECORDS SUMMARY | 2024-09-15 14:20 | External Medical Summary | Summary of Care ---
Author Name Unknown Organization [facility] Address [address] [place] [facility] [place] [address] Phone [phone] Care Team Providers Care Director Of Physician Practices Name Role Phone Santhosh Lyle MD Primary Care Provider [phone] Reason for Visit * Reason Onset Date Comments Test Results Lab 09/03/2024 Encounter Details Date Type Department Care Team (Late st Contact Info) Description 09/03/2024 Telephone [facility] [place] [address] [place] [address] Alicia Enriquez MD [address] [place] [address] Test Results Lab Allergies Active Allergy Reactions [...] Propionate 50 MCG/ACT Nasal Suspension Administer 1 [place] into nostril in the morning. 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 & informed of message below. Verbalized understanding * Telephone Encounter - Joo Parada PA-C - 09/10/2024 1:33 PM EDT Fine to proceed with surgery. Needs to follow up post operatively to work this up. * Telephone Encounter - Wally Toribio LPN - 09/10/2024 10:03 AM EDT "Patient having R shoulder replacement surgery on 09/15 at [facility] with Dr. Caro." - Pre-op appt [...] anemia post operatively? * Telephone Encounter - Urvahsi Farr LPN - 09/08/2024 3:47 PM EDT Patient aware and verbalized understanding * Telephone Encounter - Gaby Smith OSA - 09/08/2024 3:40 PM EDT Reason for patient's call: Pt returning call; message relayed and has further questions as to when these labs need to be competed. Caller was transferred to [place] at the nurse line. * Telephone Encounter - Wally Toribio LPN - 09/08/2024 10:00 AM EDT I left a message with the pt's Roddy to have the patient call back. If the patient calls back please inform her that she needs nonfasting labs for B12, Iron, and FolicAcid. She can do that any [facility] lab facility. * Telephone Encounter - Wally Toribio LPN - 09/07/2024 2:40 PM EDT VM box not setup If the patient calls back please inform her that she needs nonfasting labs for B12, Iron, and FolicAcid. She can do that any [facility] lab facility. * Addendum Note - Joo [...] AM EDT Patient did not read her [employer] message: " You were a bit anemic on your labs. Have you noticed any abnormal bruising or bleeding? Joo Parada PA-C Please check with the patient documented in this encounter Plan of Treatment Upcoming Encounters Date Type Department Care Team (Late st Contact Info) Description 01/03/2025 8:30 AM EDT Laboratory Laboratory, [place] [address] [facility] 4 [place] [address] [place], Lab [address] [facility] 4 [place] [address] 01/05/2025 9:00 AM EDT Office Visit Family [facility], [place] 27 [place] [address] Santhosh Lyle MD [address] [facility] [place] [address] 02/28/2025 1:30 PM EDT Office Visit Dermatology, [place] [address] [place] [address] Griselda Woodard PA-C 27 [place] [address] 03/09/2025 10:00 AM EDT Office Visit Cardiology, [place] [address] [place] [address] Daisy Sprague PA-C [address] [place] [address] Scheduled Procedures Name Priority Associated Diagnoses Date/Ti [...] filedocumented as of this encounter Results * FOLIC ACID (09/09/2024 7:33 AM EDT) Folic Acid >20.0 >4.5 ng/mL 09/10/2024 5:56 PM EDT LAB[facility]ORY [facility] Blood Venous blood specimen / Unknown Venipuncture / Unknown 09/09/2024 7:33 AM EDT 09/09/2024 7:34 AM EDT [facility] LAB BLOOD ORDERABLES Final Result LAB[facility]ORY [facility] [address] [place] [address] * VITAMIN B12 (09/09/2024 7:33 AM EDT) Vitamin B12 714 232 - 1,245 pg/mL 09/09/2024 7:41 PM EDT LAB[facility]ATORY [facility] Blood Venous blood specimen / Unknown Venipuncture / Unknown 09/09/2024 7:33 AM EDT 09/09/2024 7:34 AM EDT [facility] Matty GLORIA-C LAB BLOOD ORDERABLES Final Result Performing Organization Address City/[facility]/ZIP Co de Phone Number LABORATORY [facility] [address] [place] [address] * (ABNORMAL) IRON SCREEN, INCLUDING TIBC (09/09/2024 [...] 7:33 AM EDT 09/09/2024 7:34 AM EDT [facility] Matty Parada PA-C LAB BLOOD ORDERABLES Final Result LAB[facility]ATORY [facility] [address] [place] [address] documented in this encounter Visit Diagnoses Diagnosis [...] have a Living Will? No Care Teams Director Of Physician Practices Relationship Specialty Start Date End Date Santhosh Lyle MD [address] [place] [address] PCP - General Family Medicine 07/06/20 documented as of this encounter
--- OUTSIDE RECORDS SUMMARY | 2024-09-15 14:20 | External Medical Summary | Summary of Care ---
Author Name Unknown Organization [facility] Address [address] [place] [facility] [place] [address] Phone [phone] Care Team Providers Care Supervisor Cellars Name Role Phone Santhosh Lyle MD Primary Care Provider [phone] Reason for Visit * Reason Onset Date Comments Test Results Lab 09/03/2024 Encounter Details Date Type Department Care Team (Late st Contact Info) Description 09/03/2024 Telephone [facility] Nat Peng [address] [facility] [facility] [address] [place] [address] Alicia Enriquez MD [address] [facility] [address] [place] [address] Test Results Lab Allergies Active Allergy Reactions [...] Propionate 50 MCG/ACT Nasal Suspension Administer 1 [place] into nostril in the morning. 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 Verbalized understanding * Telephone Encounter - Joo Parada PA-C - 09/10/2024 1:33 PM EDT Fine to proceed with surgery. Needs to follow up post operatively to work this up. * Telephone Encounter - Wally Toribio LPN - 09/10/2024 10:03 AM EDT "Patient having R shoulder replacement surgery on 09/15 at [facility] with Dr. Caro." - Pre-op appt [...] to be competed. Caller was transferred to [place] at the nurse line. * Telephone Encounter [...] AM EDT Patient did not read her [employer] message: " You were a bit anemic on your labs. Have you noticed any abnormal bruising or bleeding? Joo Parada PA-C Please check with the patient documented in this encounter Plan of Treatment Upcoming Encounters Date Type Department Care Team (Late st Contact Info) Description 01/03/2025 8:30 AM EDT Laboratory Laboratory, [place] [address] [facility] 4 [place] [address] Nat, Lab [address] [facility] 4 [place] [address] 01/05/2025 9:00 AM EDT Office Visit Family [facility], Nat 27 [place] [address] Santhosh Lyle MD [address] [facility] [place] [address] 02/28/2025 1:30 PM EDT Office Visit Dermatology, [place]is Rice [address] [place] [address] Griselda Woodard PA-C 27 [place] [address] 03/09/2025 10:00 AM EDT Office Visit Cardiology, [place] 400 [place] [address] Daisy Sprague PA-C [address] [place] [address] Scheduled Procedures Name Priority Associated Diagnoses Date/Ti [...] 09/09/2024 7:34 AM EDT [facility] LAB BLOOD ORDERABLES Final Result LAB[facility]ATORY [facility] [address] [place] [address] * VITAMIN B12 (09/09/2024 7:33 AM EDT) Vitamin B12 714 232 - 1,245 pg/mL 09/09/2024 7:41 PM EDT LAB[facility]ATORY [facility] Blood Venous blood specimen / Unknown Venipuncture / Unknown 09/09/2024 7:33 AM EDT 09/09/2024 7:34 AM EDT [facility] Matty GLORIA-C LAB BLOOD ORDERABLES Final Result Performing Organization Address City/[facility]/ZIP Co de Phone Number LABORATORY [facility] [address] [place] [address] * (ABNORMAL) IRON SCREEN, INCLUDING TIBC (09/09/2024 [...] AM EDT 09/09/2024 7:34 AM EDT [facility] Matty Parada PA-C LAB BLOOD ORDERABLES Final Result LAB[facility]ATORY [facility] [address] [place] [address] documented in this encounter Visit Diagnoses Diagnosis [...] have a Living Will? No Care Teams Supervisor Cellars Relationship Specialty Start Date End Date Santhosh Lyle MD [address] [place] [address] PCP - General Family Medicine 07/06/20 documented as of this encounter
--- OUTSIDE RECORDS SUMMARY | 2024-09-15 14:21 | External Medical Summary | Summary of Care ---
Author Name Unknown Organization [facility] Address [address] [place] [address] Phone [phone] Care Team Providers Care Technician Trainee Name Role Phone Santhosh Lyle MD Primary Care Provider [phone] Reason for Visit * Reason Onset Date Comments Test Results Lab 09/03/2024 Encounter Details Date Type Department Care Team (Late st Contact Info) Description 09/03/2024 Telephone [facility] Nat Peng [address] [place] [address] Alicia Enriquez MD [address] [place] [address] Test Results Lab Allergies Active Allergy Reactions Criticality Noted Date Comments Bactrim 11/24/2013 unaware Celecoxib 11/24/2013 rash Alendronate 03/08/2021 Bone necrosis of jaw Sulfa Antibiotics Hives 12/10/2011 Sulfamethoxazole 03/04/2024 documented as of this encounter (statuses as of 09/07/2024) Medications MAGNESIUM 400 MG PO CAPS one daily Active Multiple Vitamins-Mineral s (CENTRUM SILVER) Tablet Take 1 Tablet by mouth in the morning. Active Fluticasone Propionate 50 MCG/ACT Nasal Suspension Administer 1 [place] into nostril in the morning. Active Calcium [...] as of this encounter (statuses as of 09/07/2024) Active Problems Problem Noted Date Diagnosed Date [...] as of this encounter (statuses as of 09/07/2024) Resolved Problems Problem Noted Date Diagnosed Date Resolved Date Numerous skin moles 12/27/2021 12/28/19 22 Closed fracture of left hip 11/06/2019 01/31/2020 Gait abnormality 11/06/2019 01/31/2020 Pain of left hip joint 11/06/201901/30 Avulsion fracture of calcaneus 05/15/2015 07/14/2018 AK (actinic keratosis) 06/16/201407/14 Other seborrheic keratosis 06/16/2014 1 07/25/2015 Solar lentigo 06/16/2014 07/14/2018 Unspecified disease of nail 01/01/2012 05/24/2016 Overview (01/01/2012): Has a tiny sathish of pigment seemingly in the nail plate distally and radially on the L thumbnail-she just noticed it Suggest that she watch and make sure it migrates outward over the next couple of months; I suspect it is a FB Mole of skin 12/10/2011 05/24/2016 Overview (12/10/2011): Tip of L great toe 0.3cm for <2cm Will follow in 6M Chandra Eason MD 12/10/2011 10:06 AM NONE 01/25/2009 01/25/2009 Favor Benign Papule at L Nasal Tip 01/25/2009 07/14/2018 Anemia 07/14/2018 Overview (03/10/2017): ICD-10 update of inactive term documented as of this encounter (statuses as of 09/07/2024) Immunizations Name Administration Dates Next Due COVID-19 mRNA, LNP-s, No Pre serve, 2-Dose Series (Pfizer) 01/01/2022,03/31/2021,09/12/2020,08/22 COVID-19, MRNA-LNP, PF, 30 M CG/0.3 mL, 12 YRS AND ABOVE, IM (PFIZER-Comirnaty) 02/23/2024,04/25/2023 Pneumococcal Conjugate Vacc, 13 Valent (Prevnar) 11/08/2015 Pneumococcal Conjugate Vacci ne, 20-valent ([id number]) 05/05/2024 Pneumococcal Polysaccharide PPV23 (Pneumovax) 12/09/2011 Season [...] older, IM (Adacel) 01/03/2010 Varicella Zoster Vaccine (Adult) 09/08/2007 Zoster Vaccine Recombinant (Shingrix) 07/16/2019 ,01/13/2019 documented as of this encounter Social History Tobacco Use Types Packs/Day Years Used Date Smoking Tobacco: Never Smokeless Tobacco: Never Comments: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 She can do that any [facility] lab facility. * Addendum Note - [...] AM EDT Patient did not read her [employer] message: " You were a bit anemic on your labs. Have you noticed any abnormal bruising or bleeding? Joo Parada PA-C Please check with the patient documented in this encounter Plan of Treatment Upcoming Encounters Date Type Department Care Team (Late st Contact Info) Description 01/03/2025 8:30 AM EDT Laboratory Laboratory, [place] [address] [place] [address] [place], Lab [address] [facility] [address] [place] [address] 01/05/2025 9:00 AM EDT Office Visit Family Practice, [place] [address] [facility] [place] [address] Santhosh Lyle MD [address] [facility] [place] [address] 02/28/2025 1:30 PM EDT Office Visit Dermatology, [place]and[place] Rice [address] [facility] 140 [place] [address] Griselda Woodard PA-C [address] [place] [address] 03/09/2025 10:00 AM EDT Office Visit CardiologyKandis [address] [place] [address] Daisy Sprague [facility]C [address] [facility] [place] [address] Scheduled Orders Name Type Priority Associated Diagnoses Orde r Schedule IRON SCREEN, INCLUDING TIBC Lab Routine Anemia, unspecified type Expected: 09/07/2024 (Approximate), Expires: 09/07/2025 VITAMIN B12 Lab Routine Anemia, unspecified type Expected: 09/07/2024 (Approximate), Expires: 09/07/2025 FOLIC ACID Lab Routine Anemia, unspecified type [...] Not on filedocumented as of this encounter Visit Diagnoses Diagnosis Anemia, unspecified [...] 5:30 PM 11/09/2019 8:09 PM This order r eflects the patients wishes and were consensually agreed upon. Question Answer Comments Discussion of Advance Directives occurred with: Not Discussed Does the patient have a Living Will? No Care Teams Technician Trainee Relationship Specialty Start Date End Date Santhosh Lyle MD [address] [facility] [place] [address] PCP - General Family Medicine 07/06/20 documented as of this encounter
--- OUTSIDE RECORDS SUMMARY | 2024-09-15 14:21 | External Medical Summary | Summary of Care ---
Author Name Unknown Organization [facility] Address [address] [place] [place] [address] Phone [phone] Care Team Providers Care Veterinary Parasitologist Name Role Phone Santhosh Lyle MD Primary Care Provider [phone] Reason for Visit * Reason Onset Date Comments Test Results Lab 09/03/2024 Encounter Details Date Type Department Care Team (Late st Contact Info) Description 09/03/2024 Telephone [facility] Nat Peng [address] [facility] [address] [address] [place] [address] Alicia Enriquez MD [address] [facility] [address] [place] [address] Test Results Lab Allergies Active Allergy Reactions [...] Propionate 50 MCG/ACT Nasal Suspension Administer 1 [place] into nostril in the morning. 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 She can do that any [facility] lab facility. * Addendum Note - Joo [...] AM EDT Patient did not read her [employer] message: " You were a bit anemic on your labs. Have you noticed any abnormal bruising or bleeding? Joo Parada PA-C Please check with the patient documented in this encounter Plan of Treatment Upcoming Encounters Date Type Department Care Team (Late st Contact Info) Description 01/03/2025 8:30 AM EDT Laboratory Laboratory, [place] [address] [place] [address] [place], Lab [address] [facility] [address] [place] [address] 01/05/2025 9:00 AM EDT Office Visit Family Practice, [place] [address] [facility] [place] [address] Santhosh Lyle MD [address] [facility] [place] [address] 02/28/2025 1:30 PM EDT Office Visit Dermatology, Kandis Rice [address] [facility] 140 [place] [address] Griselda Woodard PA-C [address] [place] [address] 03/09/2025 10:00 AM EDT Office Visit CardiologyKandis [address] [place] [address] Daisy Sprague PA-C [address] [facility] [place] [address] Scheduled Orders Name Type Priority Associated Diagnoses [...] have a Living Will? No Care Teams Veterinary Parasitologist Relationship Specialty Start Date End Date Santhosh Lyle MD 27 [facility] [place] [address] PCP - General Family Medicine 07/06/20 documented as of this encounter
--- OUTSIDE RECORDS SUMMARY | 2024-09-15 14:21 | External Medical Summary ---
Author Name Unknown Address Unknown Organization K01:LABORATORY [facility] [address] [place] [address] Laboratory Report Ordering Provider Test Date Status FITO,BRACKBILL 09/09/2024 07:33:52 Final Observation Date Value Abnormality Reference (Units ) Status Vitamin B12 09/09/2024 07:33:52 428 198-4423 (pg/mL) Final Performing Location LAB[facility] [address] [address]
--- OUTSIDE RECORDS SUMMARY | 2024-09-15 14:21 | External Medical Summary | Summary of Care ---
Author Name Unknown Organization [facility] Address [address] [place] [facility] [place] [address] Phone [phone] Care Team Providers Care Experimental Psychologist Name Role Phone Santhosh Lyle MD Primary Care Provider [phone] Reason for Visit * Reason Onset Date Comments Test Results Lab 09/03/2024 Encounter Details Date Type Department Care Team (Late st Contact Info) Description 09/03/2024 Telephone [facility] Nat Peng [address] [place] [address] Alicia Enriquez MD [address] [place] [address] Test Results Lab Allergies Active Allergy Reactions Criticality Noted Date Comments Bactrim 11/24/2013 unaware Celecoxib 11/24/2013 rash Alendronate 03/08/2021 Bone necrosis of jaw Sulfa Antibiotics Hives 12/10/2011 Sulfamethoxazole 03/04/2024 documented as of this encounter (statuses as of 09/08/2024) Medications MAGNESIUM 400 MG PO CAPS one daily Active Multiple Vitamins-Mineral s (CENTRUM SILVER) Tablet Take 1 Tablet by mouth in the morning. Active Fluticasone Propionate 50 MCG/ACT Nasal Suspension Administer 1 [place] into nostril in the morning. Active Calcium [...] as of this encounter (statuses as of 09/08/2024) Active Problems Problem Noted Date Diagnosed Date [...] as of this encounter (statuses as of 09/08/2024) Resolved Problems Problem Noted Date Diagnosed Date [...] as of this encounter (statuses as of 09/08/2024) Immunizations Name Administration Dates Next Due COVID-19 mRNA, LNP-s, No Pre serve, 2-Dose Series (Pfizer) 01/01/2022,03/31/2021,09/12/2020,08/22 COVID-19, MRNA-LNP, PF, 30 M CG/0.3 mL, 12 YRS AND ABOVE, IM (PFIZER-Comirnaty) 02/23/2024,04/25/2023 Pneumococcal Conjugate Vacc, 13 Valent (Prevnar) 11/08/2015 Pneumococcal Conjugate Vacci ne, 20-valent ([id number]) 05/05/2024 Pneumococcal Polysaccharide PPV23 (Pneumovax) 12/09/2011 Season [...] 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 Caller was transferred to [place] at the nurse line. * Telephone Encounter [...] AM EDT Patient did not read her [employer] Financial Engineeringer message: " You were a bit anemic on your labs. Have you noticed any abnormal bruising or bleeding? Joo Parada PA-C Please check with the patient documented in this encounter Plan of Treatment Upcoming Encounters Date Type Department Care Team (Late st Contact Info) Description 01/03/2025 8:30 AM EDT Laboratory Laboratory, [place] [address] [facility] [address] [place] [address] [place], Lab 27 [facility] [address] [place] [address] 01/05/2025 9:00 AM EDT Office Visit [facility] [place] [address] [facility] [place] [address] Santhosh Lyle MD [address] [facility] [place] [address] 02/28/2025 1:30 PM EDT Office Visit Dermatology, [place] [address] [place] [address] Griselda Woodard PA-C [address] [place] [address] 03/09/2025 10:00 AM EDT Office Visit Cardiology, [place] [address] [place] [address] Daisy Sprague, NARCISA [address] [place] [address] Scheduled Orders Name Type Priority Associated Diagnoses [...] have a Living Will? No Care Teams Experimental Psychologist Relationship Specialty Start Date End Date Santhosh Lyle MD [address] [facility] [place] [address] PCP - General Family Medicine 07/06/20 documented as of this encounter
--- OUTSIDE RECORDS SUMMARY | 2024-09-15 14:21 | External Medical Summary | Summary of Care ---
Author Name Unknown Organization [facility] Address [address] [facility] [place] [address] Phone [phone] Care Team Providers Care Tick Eradicator Name Role Phone Santhosh Lyle MD Primary Care Provider [phone] Reason for Visit * Reason Onset Date Comments Test Results Lab 09/03/2024 Encounter Details Date Type Department Care Team (Late st Contact Info) Description 09/03/2024 Telephone [facility] [place] [address] [place] [address] Alicia Enriquez MD [address] [place] [address] Test Results Lab Allergies Active Allergy Reactions [...] Propionate 50 MCG/ACT Nasal Suspension Administer 1 [place] into nostril in the morning. 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 She can do that any [facility] lab facility. * Addendum Note - Joo [...] AM EDT Patient did not read her [facility] message: " You were a bit anemic on your labs. Have you noticed any abnormal bruising or bleeding? Joo Parada PA-C Please check with the patient documented in this encounter Plan of Treatment Upcoming Encounters Date Type Department Care Team (Late st Contact Info) Description 01/03/2025 8:30 AM EDT Laboratory Laboratory, [place] [address] [place] [address] [place], Lab [address] [facility] [address] [place] [address] 01/05/2025 9:00 AM EDT Office Visit Family Practice, [place] [address] [facility] [place] [address] Santhosh Lyle MD [address] [place] [address] 02/28/2025 1:30 PM EDT Office Visit Dermatology, [place] [address] [facility] 140 [place] [address] Griselda Woodard PA-C [address] [place] [address] 03/09/2025 10:00 AM EDT Office Visit Cardiology[facility]andis [address] [place] [address] Daisy Sprague [facility]C [facility] [place] [address] Scheduled Orders Name Type Priority Associated Diagnoses [...] have a Living Will? No Care Teams Tick Eradicator Relationship Specialty Start Date End Date Santhosh Lyle MD 27 [facility] [place] [address] PCP - General Family Medicine 07/06/20 documented as of this encounter
--- OUTSIDE RECORDS SUMMARY | 2024-09-15 14:21 | External Medical Summary | Summary of Care ---
Author Name Unknown Organization [facility] Address [address] [place] [facility] [place] [address] Phone [phone] Care Team Providers Care Shank Maker Name Role Phone Santhosh Lyle MD Primary Care Provider [phone] Reason for Visit * Reason Onset Date Comments Test Results Lab 09/03/2024 Encounter Details Date Type Department Care Team (Late st Contact Info) Description 09/03/2024 Telephone [facility] [place] [address] [place] [address] Alicia Enriquez MD [address] [place] [address] Test Results Lab Allergies Active Allergy Reactions [...] Propionate 50 MCG/ACT Nasal Suspension Administer 1 [place] into nostril in the morning. 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 Have you noticed any abnormal bruising or bleeding? Joo Parada PA-C Please check with the patient documented in this encounter Plan of Treatment Upcoming Encounters Date Type Department Care Team (Late st Contact Info) Description 01/03/2025 8:30 AM EDT Laboratory Laboratory, [place] [address] [place] [address] [place], Lab 27 [address] [facility] 4 [place] [address] 01/05/2025 9:00 AM EDT Office Visit Family Practice, [place] 27 [place] [address] Santhosh Lyle MD [address] [facility] [place] [address] 02/28/2025 1:30 PM EDT Office Visit Dermatology, [place] 27 [address] [facility] 140 [place] [address] Griselda Woodard PA-C 27 [place] [address] 03/09/2025 10:00 AM EDT Office Visit Cardiology, [place] 400 [place] [address] Daisy Sprague PA-C [address] [place] [address] Scheduled Orders Name Type Priority Associated Diagnoses [...] have a Living Will? No Care Teams Shank Maker Relationship Specialty Start Date End Date Santhosh Lyle MD [address] [facility] [place] [address] PCP - General Family Medicine 07/06/20 documented as of this encounter
--- OUTSIDE RECORDS SUMMARY | 2024-09-15 14:21 | External Medical Summary | Summary of Care ---
Author Name Unknown Organization [facility] Address [address] [place] [facility] [place] [place] [address] Phone [phone] Care Team Providers Care Salesperson Women'S Dresses Name Role Phone Santhosh Lyle MD Primary Care Provider Reason for Visit * Reason Onset Date Comments Test Results Lab 09/03/2024 Encounter Details Date Type Department Care Team (Late st Contact Info) Description 09/03/2024 Telephone [facility] Nat [place] [address] [place] [address] Alicia Enriquez MD [address] [place] [address] Test Results Lab Allergies Active Allergy Reactions [...] Propionate 50 MCG/ACT Nasal Suspension Administer 1 [place] into nostril in the morning. 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 Have you noticed any abnormal bruising or bleeding? Joo Parada PA-C Please check with the patient documented in this encounter Plan of Treatment Upcoming Encounters Date Type Department Care Team (Late st Contact Info) Description 01/03/2025 8:30 AM EDT Laboratory Laboratory, [place] [address] [facility] [address] [place] [address] [place], Lab [address] [facility] [address] [place] [address] 01/05/2025 9:00 AM EDT Office Visit [facility], [place] [address] [facility] [place] [address] Santhosh Lyle MD [address] [facility] [place] [address] 02/28/2025 1:30 PM EDT Office Visit Dermatology, [place] [address] [place] [address] Griselda Woodard PA-C [address] [place] [address] 03/09/2025 10:00 AM EDT Office Visit Cardiology, [place] [address] [place] [address] Daisy Sprague, NARCISA [address] [place] [address] Scheduled Orders Name Type Priority Associated Diagnoses [...] have a Living Will? No Care Teams Salesperson Women'S Dresses Relationship Specialty Start Date End Date Santhosh Lyle MD [address] [facility] [place] [address] PCP - General Family Medicine 07/06/20 documented as of this encounter
--- OUTSIDE RECORDS SUMMARY | 2024-09-15 14:21 | External Medical Summary ---
Author Name Unknown Address Unknown Organization K01:LABORATORY [facility] - [address] [place] [address] Laboratory Report Ordering Provider Test Date Status FITO,BRACKBILL 09/09/2024 07:33:52 Final Observation Date Value Abnormality Reference (Units ) Status Iron 09/09/2024 07:33:52 35 33-151 (ug/dL) Final Iron-binding capacity 09/09/2024 07:33:52 277 250-425 (ug/dL) Final Transferrin Sat % 09/09/2024 07:33:52 13 Below low normal 15-55 (%) Final Performing Location LABORATORY [facility] - [address] [place] [address]
--- OUTSIDE RECORDS SUMMARY | 2024-09-15 14:21 | External Medical Summary ---
Author Name Unknown Address Unknown Organization K01:[facility]ATORY [facility] - [address] [place] [address] Laboratory Report Ordering Provider Test Date Status FITO,BRACKBILL 09/09/2024 07:33:52 Final Observation Date Value Abnormality Reference (Units ) Status Folic Acid 09/09/2024 07:33:52 >20.0 >4.5 (ng/ mL) Final Performing Location LABORATORY [facility] - [address] [place] [address]
--- OUTSIDE RECORDS SUMMARY | 2024-09-15 14:21 | External Medical Summary | Summary of Care ---
Author Name Unknown Organization [facility] Address [address] [facility] [place] [address] Phone [phone] Care Team Providers Care Beam Department Supervisor Name Role Phone Santhosh Lyle MD Primary Care Provider [phone] Reason for Visit * Reason Onset Date Comments Test Results Lab 09/03/2024 Encounter Details Date Type Department Care Team (Late st Contact Info) Description 09/03/2024 Telephone [facility] [place] [address] [place] [address] Alicia Enriquez MD [address] [place] [address] Test Results Lab Allergies Active Allergy Reactions [...] Propionate 50 MCG/ACT Nasal Suspension Administer 1 [place] into nostril in the morning. 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 Caro." - Pre-op appt [...] to be competed. Caller was transferred to [place] at the nurse line. * Telephone Encounter - Wally Toribio LPN - 09/08/2024 10:00 AM EDT I left a message with the pt's Roddy to have the patient call back. If the patient calls back please inform her that she needs nonfasting labs for B12, Iron, and FolicAcid. She can do that any [facility] lab facility. * Telephone Encounter - Wally Toribio LPN - 09/07/2024 2:40 PM EDT VM box not setup If the patient calls back please inform her that she needs nonfasting labs for B12, Iron, and FolicAcid. She can do that any [facility] lab facility. * Addendum Note - Joo [...] AM EDT Patient did not read her [employer] message: " You were a bit anemic on your labs. Have you noticed any abnormal bruising or bleeding? Joo Parada PA-C Please check with the patient documented in this encounter Plan of Treatment Upcoming Encounters Date Type Department Care Team (Late st Contact Info) Description 01/03/2025 8:30 AM EDT Laboratory Laboratory, [place] 27 [facility] [address] [place] [phone] [place], Lab [address] [place] [address] 01/05/2025 9:00 AM EDT Office Visit Family Practice, [place] 27 [place] [address] Santhosh Lyle MD [address] [place] [address] 02/28/2025 1:30 PM EDT Office Visit Dermatology, [place] 27 [address] [facility] 140 [place] [address] Griselda Woodard PA-C [address] [place] [address] 03/09/2025 10:00 AM EDT Office Visit Cardiology, [place] [address] [place] [address] Daisy Sprague PA-C [address] [place] [address] Pending Results Name Type Priority Associated Diagnoses [...] ORDERABLES Final Result LABORATORY [facility] [address] [place] [address] * (ABNORMAL) IRON SCREEN, INCLUDING TIBC (09/09/2024 [...] PA-C LAB BLOOD ORDERABLES Final Result [facility] [address] [place] [address] documented in this encounter Visit Diagnoses Diagnosis [...] have a Living Will? No Care Teams Beam Department Supervisor Relationship Specialty Start Date End Date Santhosh Lyle MD 27 [facility] [place] [address] PCP - General Family Medicine 07/06/20 documented as of this encounter
--- OUTSIDE RECORDS SUMMARY | 2024-09-15 14:21 | External Medical Summary | Summary of Care ---
Author Name Unknown Organization [facility] Address [address] [place] [address] Phone [phone] Care Team Providers Care Bowling Teacher Name Role Phone Santhosh Lyle MD Primary Care Provider Reason for Visit * Reason Comments Outpatient Testing Encounter Details Date Type Department Care Team (Late st Contact Info) Description 09/09/2024 7:30 AM EDT Laboratory Laboratory, [place] 27 [facility] [address] [place] [phone] [place], Lab 27 [facility] Mikhail [address] [place] [address] Anemia, unspecified type Allergies Active Allergy Reactions Criticality Noted Date Comments Bactrim 11/24/2013 unaware Celecoxib 11/24/2013 rash Alendronate 03/08/2021 Bone necrosis of jaw Sulfa Antibiotics Hives 12/10/2011 Sulfamethoxazole 03/04/2024 documented as of this encounter (statuses as of 09/09/2024) Medications MAGNESIUM 400 MG PO CAPS one daily Active Multiple Vitamins-Mineral s (CENTRUM SILVER) Tablet Take 1 Tablet by mouth in the morning. Active Fluticasone Propionate 50 MCG/ACT Nasal Suspension Administer 1 [place] into nostril in the morning. Active Calcium [...] as of this encounter (statuses as of 09/09/2024) Active Problems Problem Noted Date Diagnosed Date [...] as of this encounter (statuses as of 09/09/2024) Resolved Problems Problem Noted Date Diagnosed Date [...] as of this encounter (statuses as of 09/09/2024) Immunizations Name Administration Dates Next Due COVID-19 mRNA, LNP-s, No Pre serve, 2-Dose Series (Pfizer) 01/01/2022,03/31/2021,09/12/2020,08/22 COVID-19, MRNA-LNP, PF, 30 M CG/0.3 mL, 12 YRS AND ABOVE, IM (PFIZER-Comirnaty) 02/23/2024,04/25/2023 Pneumococcal Conjugate Vacc, 13 Valent (Prevnar) 11/08/2015 Pneumococcal Conjugate Vacci ne, 20-valent ([id number]) 05/05/2024 Pneumococcal Polysaccharide PPV23 (Pneumovax) 12/09/2011 Season [...] 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 Alcohol Use Standard Drinks/Week Comments Yes [...] 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 on file Not [...] Description 01/03/2025 8:30 AM EDT Laboratory Laboratory, [place] 27 [facility] [address] [place] [address] [place], Lab 27 [facility] [address] [place] [address] 01/05/2025 9:00 AM EDT Office Visit Family Practice, [place] 27 [place] [address] Santhosh Lyle MD 27 [facility] [place] [address] 02/28/2025 1:30 PM EDT Office Visit Dermatology, [place] [address] J[address] [facility] 140 [place] [address] Griselda Woodard PA-C 27 [place] [address] 03/09/2025 10:00 AM EDT Office Visit Cardiology, [place] [address] [place] [address] Daisy Sprague PA-C [address] [place] [address] Pending Results Name Type Priority Associated Diagnoses Date /Time IRON SCREEN, INCLUDING TIBC Lab Routine Anemia, unspecified type 09/09/2024 7:33 AM EDT VITAMIN B12 Lab Routine Anemia, unspecified type 09/09/2024 7:33 AM EDT FOLIC ACID Lab Routine Anemia, unspecified type 09/09/2024 7:33 AM EDT Scheduled Procedures Name Priority Associated Diagnoses Date/Ti [...] this encounter Visit Diagnoses Diagnosis Anemia, unspecified type documented in this encounter Advance Directives * [...] have a Living Will? No Care Teams Bowling Teacher Relationship Specialty Start Date End Date Santhosh Lyle MD 27 [facility] [place] [address] PCP - General Family Medicine 07/06/20 documented as of this encounter
--- OUTSIDE RECORDS SUMMARY | 2024-09-15 14:21 | External Medical Summary | Summary of Care ---
Author Name Unknown Organization [facility] Address [address] [place] [facility] [address] Phone [phone] Care Team Providers Care Brake Repairer Railroad Name Role Phone Santhosh Lyle MD Primary Care Provider [phone] Reason for Visit * Reason Onset Date Comments Test Results Lab 09/03/2024 Encounter Details Date Type Department Care Team (Late st Contact Info) Description 09/03/2024 Telephone [facility] [place] [address] [place] [address] Alicia Enriquez MD [address] [place] [address] Test Results Lab Allergies Active Allergy Reactions [...] Propionate 50 MCG/ACT Nasal Suspension Administer 1 [place] into nostril in the morning. 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 Answer Date of Assessment Author No 04/25/2024 7:04 PM Holly uJarez RN * Are you blind or do [...] AM EDT Patient did not read her [employer] message: " You were a bit anemic on your labs. Have you noticed any abnormal bruising or bleeding? Joo Parada PA-C Please check with the patient documented in this encounter Plan of Treatment Upcoming Encounters Date Type Department Care Team (Late st Contact Info) Description 01/03/2025 8:30 AM EDT Laboratory Laboratory, [place] 27 [facility] [address] [place] [address] [place], Lab [address] [facility] [address] [place] [address] 01/05/2025 9:00 AM EDT Office Visit [facility], [place] [address] [facility] [place] [address] Santhosh Lyle MD 27 [facility] [place] [address] 02/28/2025 1:30 PM EDT Office Visit Dermatology, [place] [address] [place] [address] Griselda Woodard PA-C [address] [place] [address] 03/09/2025 10:00 AM EDT Office Visit Cardiology, [place] [address] [place] [address] Daisy Sprague, NARCISA [address] [place] [address] Scheduled Orders Name Type Priority Associated Diagnoses [...] have a Living Will? No Care Teams Brake Repairer Railroad Relationship Specialty Start Date End Date Santhosh Lyle MD 27 [facility] [place] [address] PCP - General Family Medicine 07/06/20 documented as of this encounter
--- OUTSIDE RECORDS SUMMARY | 2024-09-15 14:22 | External Medical Summary | Summary of Care ---
Author Name Unknown Organization [facility] Address [address] [place] [address] Phone [phone] Care Team Providers Care Lead Javascript Engineer Name Role Phone Belinda Lyle MD Primary Care Provider [phone] Reason for Visit * Reason Comments eRx-Medication Refill Encounter Details Date Type Department Care Team (Late st Contact Info) Description [facility] [address] [place] [address] Belinda Lyle MD [address] [place] [address] Depression with anxiety; Dyslipidemia Allergies Active Allergy Reactions Criticality Noted Date Comments Bactrim 11/24/2013 unaware Celecoxib 11/24/2013 rash 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 Active Fluticasone Propionate 50 MCG/ACT Nasal Suspension Administer 1 Oakley into nostril in the morning. Active Calcium Carb-Cholecalci ferol 500-400 MG-UNIT Oral Tablet Take 2 Tabs by mouth daily. Active Carboxymeth-Gly cerin-Polysorb 0.5-1-0.5 % Ophthalmic Solution Instill into eye 2 times a day. Active Pramoxine-Benzy l Alcohol 1-10 % External Gel Apply topically to affected area. Apply to bites Active Zinc 50 MG Oral Capsule Take 1 Capsule by mouth in the morning. Active Azelastine HCl 0.1 % Nasal Solution Administer 2 Sprays into nostril in the morning. 30 mL 12 04/20/20 22 Active Additional Information Patient not taking.Reported on 08/30/2024 Triamcinolone Acetonide 0.5 % External Cream (Aristocort)Ind ications:Rash and nonspecific skin eruption To affected area once a day or as needed for itching. 15 g 1 02/08/20 Active Additional Information Patient not taking.Reported on 05/05/2024 Polyethylene Glycol 3350 17 GM/SCOOP Oral Powder (MiraLax) Take 17 g by mouth in the morning. One cap full in juice, to effect 1 stool per day. .. 510 g 1 04/17/20 Active Additional Information Patient not taking.Reported on [...] Pain, Mild or Pain, Moderate. 30 Tablet 4 9:37 AM EST 04/27/20 Active oxyCODONE HCl 5 MG Oral Tablet (Oxy IR) Take 1 Tablet by mouth every 8 hours as needed for Pain, Severe. 20 Tablet 4 9:37 AM EST 04/27/20 Active Additional Information Patient not taking.Reported on 05/05/2024 Lidocaine 4 % External Patch (Aspercreme) Place 1 Patch over 12 hours topically on the skin daily. 30 Patch 11/27/20 24 Active Additional Information Patient not taking.Reported on 08/30/2024 Metoprolol Succinate ER 25 MG Oral Tablet Extended Release 24 Hour (toPROL XL) TAKE 1 TABLET BY MOUTH DAILY IN THE MORNING 30 Tablet 11 08/21/19 25 Active DULoxetine HCl 20 MG Oral Capsule Delayed Release Particles (Cymbalta)Indic ations:Depressi on with anxiety TAKE 1 CAPSULE EVERY MORNING 90 Capsule 3 09/07/19 25 Active Rosuvastatin Calcium 10 MG Oral Tablet (Crestor)Indica tions:Dyslipide concepcion TAKE 1 TABLET EVERY MORNING 90 Tablet 3 09/07/19 25 Active DULoxetine HCl 20 MG Oral Capsule Delayed Release Particles (Cymbalta)Indic ations:Depressi on with anxiety Take 1 Capsule by mouth in the morning. 90 Capsule 1 02/26/20 24 025 Discontinued Rosuvastatin Calcium 10 MG Oral Tablet (Crestor)Indica tions:Dyslipide concepcion Take 1 Tablet by mouth in the morning. 90 Tablet 1 02/26/20 24 025 Discontinued documented as of this encounter (statuses as of 09/06/2024) Active Problems Problem Noted Date Diagnosed Date [...] as of this encounter (statuses as of 09/06/2024) Resolved Problems Problem Noted Date Diagnosed Date [...] as of this encounter (statuses as of 09/06/2024) Immunizations Name Administration Dates Next Due COVID-19 mRNA, LNP-s, No Pre serve, 2-Dose Series (Pfizer) 01/01/2022,03/31/2021,09/12/2020,08/22 COVID-19, MRNA-LNP, PF, 30 M CG/0.3 mL, 12 YRS AND ABOVE, IM (PFIZER-Comirnaty) 02/23/2024,04/25/2023 Pneumococcal Conjugate Vacc, 13 Valent (Prevnar) 11/08/2015 Pneumococcal Conjugate Vacci ne, 20-valent ([id number]) 05/05/2024 Pneumococcal Polysaccharide PPV23 (Pneumovax) 12/09/2011 Season [...] 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 on file Not [...] of Assessment Author No 04/25/2024 7:04 PM EST William, E leighann, RN * Because of a physical, mental, [...] encounter Miscellaneous Notes * Telephone Encounter - Belinda Lyle MD - 09/06/2024 2:31 PM EDTSigned Prescriptions: Disp Refills DULoxetine HCl 20 MG Oral Capsule Delayed *90 Cap*3 Sig: TAKE 1 CAPSULE EVERY MORNING Authorizing Provider: BELINDA LYLE Rosuvastatin Calcium 10 MG Oral Tablet (Cr*90 Tab*3 Sig: TAKE 1 TABLET EVERY MORNING Authorizing Provider: BELINDA LYLE * Telephone Encounter - Geoffrey Taylor LPN - 09/06/2024 2:28 PM EDTPending Prescriptions: Disp Refills DULoxetine HCl 20 MG Oral Capsule Delayed *90 Cap*3 Sig: TAKE 1CAPSULE EVERY MORNING Rosuvastatin Calcium 10 MG Oral Tablet [Ph*90 Tab*3 Sig: TAKE 1 TABLET EVERY M ORNING documented in this encounter Plan of Treatment Upcoming Encounters Date Type Department Care Team (Late st Contact Info) Description 01/03/2025 8:30 AM EDT Laboratory Laboratory, [place] [address] [place] [id number] [facility] [address] [place] [address] 01/05/2025 9:00 AM EDT Office Visit Family Practice, [place] [address] [place] [address] Belinda Lyle MD [address] [place] [address] 02/28/2025 1:30 PM EDT Office Visit D[facility]atology, [place] [address] [facility] [address] [place] [address] Griselda Woodard PA-C [address] [place] [address] 03/09/2025 10:00 AM EDT Office Visit Cardiology, [place] [address] [place] [address] Daisy Sprague PA-C [address] [place] [address] Scheduled Procedures Name Priority Associated Diagnoses Date/Ti me COLONOSCOPY FLEXIBLE PROXIMA L DIAGNOSTIC Recall Screening for colon cancer Health Maintenance Due Date Last Done Comments Adult Wellness Visit 2012 COVID-19 Vaccine ( season) 2024 02/23/2024, 04/25/2023, 01/01/2022, Additional history exists Depression Monitoring 01/04/2025 01/05/2024 DXA Scan 07/15/2027 07/15/2023, 02/0 10/2020, 07/07/2018, Additional history exists DTap/Tdap Vaccines [...] as of this encounter Visit Diagnoses Diagnosis Depression with anxiety Dysthymic disorder Dyslipidemia Other and unspecified hyperlipidemia documented in this encounter Advance Directives * [...] have a Living Will? No Care Teams Lead Javascript Engineer Relationship Specialty Start Date End Date Belinda Lyle MD [address] [facility] [address] [place] [address] PCP - General Family Medicine 07/06/20 documented as of this encounter
[2024-09-15] MEDS ORDERED: PHENYLEPHRINE 100MCG/ML 5ML SYR ONE (14:31)
[2024-09-15] MEDS ORDERED: ePHEDrine sulfate 50 MG/ML AMP ONE (14:38)
[2024-09-15] MEDS: TRANEXAMIC ACID 1,000 MG **IV Intra-op IV SCH (14:50)
[2024-09-15] MEDS ORDERED: GLYCOPYRROLATE 0.2 MG/ML VIAL ONE (14:59)
--- NOTE | 2024-09-15 15:58 | XRay Report ---
XR shoulder RT min 2V routine CLINICAL HISTORY: Post shoulder surgery COMPARISON: None FINDINGS: Right shoulder prosthesis shows no hardware complication. Postoperative drain and skin sta ples are present. IMPRESSION: Unremarkable postoperative exam. ACT 112: Negative or not required by law. Electronically signed by: Kenji Jones M.D. 09/15/2024 3:57 PM
--- NOTE | 2024-09-15 16:07 | Operative Report ---
Post Operative Report Pre & Post Diagnosis Operation Date: 09/15/24 11:30 Pre-Op Diagnosis: Osteoarthritis of right glenohumeral joint, tendinopathy of right rotator cuff with rotator cuff cysts, biceps tendinopathy of right upper extremity. Post-Op Diagnosis: Osteoarthritis of right glenohumeral joint, tendinopathy of right rotator cuff with rotator cuff cysts, biceps tendinopathy of right upper extremity. I identified the patient and participated in the time-out.: Yes Procedure Operation Date: 09/15/24 11:30 Actual Procedures p Right Reverse Total Shoulder Arthroplasty, Open Biceps Tenodesis(Right), excision rotator cuff cysts and debridement rotator cuff and synovium and articular loose body debris biceps tendon sheath, debridement subacromial bursa tissue.- Osiel Caro MD Surgeon Osiel Caro MD Film Vault Supervisor Bin GLORIA Estimated Blood Loss 75 Findings Consistent with Post-Op Diagnosis Specimens Humeral head and rotator cuff cyst subscapularis Drains 2 Hemovac Anesthesia Type General Regional Complications none Disposition Disposition: Recovery Room Indications 78-year-old female with progressive osteoarthritis of the right shoulder now grade 4 [id number] and MRI demonstrates marked rotator cuff tendinopathy with partial tearing and degeneration supraspinatus tendon with rotator cuff cysts and glenohumeral joint effusion biceps tenosynovitis and subacromial bursal fluid collections. Description of Procedure The patient was taken to the operating room and anesthetized under regional block and general anesthetic. The patient was positioned on the operating table in a 30 beach chair position with a towel roll under the medial border of the right scapula. The arm was draped free to be able to manipulate the shoulder as needed. The right upper extremity was prepped and draped in usual sterile fashion. Exam demonstrated patient was very thin petite individual with a stiff shoulder. There was 10 degrees external rotation 70 degrees abduction and 95 degrees forward flexion. Clearly [id number] crepitation. An anterior deltopectoral approach was performed. A longitudinal incision was made in the deltopectoral interval. The skin was incised sharply. Subcutaneous flaps were elevated off the fascia. The cephalic vein was dissected out and retracted lateral with the deltoid. The clavipectoral fascia was divided at the lateral margin of the conjoined tendon and extended up to the CA ligament. The following findings were noted very large fluid collection over the biceps tendon sheath which had multiple articular loose bodies with articular debris from the joint and thickened chronic tenosynovitis around the biceps. This was a least 3 cm x 2 cm surrounding the tendon. This was all dissected out and removed. There is also chronic bursitis and fraying and tendinopathy of the supraspinatus although the tendon fibers were still intact. There was a cystic type mass possible fatty mass within the subscapularis. This was dissected out and removed from the tendon at the upper aspect of the subscapularis muscle. This was sent to pathology.. The upper centimeter of the pectoralis was released for inferior exposure. A self-retaining retractor was placed. The biceps tendon was then tenodesed to the pectoralis tendon with #2 FiberWire with whipstitch and [id number] type suture. The proximal biceps was resected. The subscapular muscle fibers were split longitudinally at the level of the circumflex vessels. The circumflex vessels were identified and tied off with silk ties and divided laterally. A Kitner elevator was used to free up the inferior fibers of the subscapularis off of the capsule. The axillary nerve was identified with a tug test and protected with a blunt Apolinar retractor between the nerve and the capsule. The subscapularis tendon was then taken down off of the lesser tuberosity subperiosteally, a Vicryl traction suture was placed and a subperiosteal dissection was performed along the neck of the humerus as the arm was gradually externally rotated exposing the humeral head. The humeral head findings demonstrated eburnated bone but multiple small cysts throughout the joint surface and moderately large osteophytes from anterior through inferior to posterior. retractors were readjusted and the osteophytes were all resected using an artist chisel. A Lerma elevator was used to assist in releasing the capsule of the neck of the humerus. The capsule was divided with Jaimes scissors down to the glenoid released off the anterior glenoid and the rotator interval was released to meet the capsular release and a 360 release of the subscapularis was accomplished. A Fukuda retractor was placed into the joint retracting the humeral head posterior. Glenoid findings demonstrated concentric glenoid wear with some bone loss multiple cysts on the exposed bone surface which was eburnated. Some circumferential osteophytes. Hypoplastic small labrum. The labrum and biceps tendon was resected. an anterior-inferior and posterior inferior capsular release were performed with electrocautery and a Lerma elevator on bone with the axillary nerve protected inferiorly by the retractor. Attention was then taken to the humeral preparation. The cutting guide was placed into the humeral head. It was positioned at 20 of retr oversion. Oscillating saw was used to resect the humeral head giving the cut above the level of the posterior rotator cuff insertion site. The humerus was then prepared for the stem. I used the ascend flex stem from [employer]. The sizing broaches were used followed by trial broaches up to a size 3B Long which had the appropriate fit and fill. The appropriate sized cut protector was placed. The humerus was then retracted posterior to the glenoid. The glenoid was sized for a 25 mm baseplate. The guide for the baseplate was positioned in a 10 inferior tilt and the central drill hole was made. It was noted that the bone was extremely sclerotic and hard. The reamer for the 25 mm aequalis standard post baseplate was used. The central drill was widened for the peg. The Tornier 25 mm standard post hydroxyapatite coated baseplate was impacted into position. The base plate was transfixed with superior and inferior locking screws and anterior and posterior compression screws with stable fixation. The fan reamer was used for the 36 millimeter glenoid sphere. After irrigation the 36 mm centered glenoid sphere was impacted onto the baseplate and the security screw was tightened. Attention was taken back to the humerus. The cut protector was removed and the +0 high offset humeral tray trial was assembled to the trial stem rotated appropriately to get bony coverage and then screwed in position. A trial reduction was performed. A +6/36 mm reversed flex trial insert demonstrated good stability and no shuck. The trials were removed. 3 drill holes are made into the harder bone in the bicipital groove area and 3 #5 FiberWire sutures were placed transosseously. The canal was irrigated with pulsatile lavage saline solution. The final component was assembled. The final component was +6/36 mm reversed flex insert with +0 high offset tray and a 3B Long ascend flex stem. This was then impacted into the humerus with a tight press-fit. It was reduced to the glenoid sphere. Stability was verified. Subscapularis was repaired with the #5 FiberWire sutures using Joseph-Juvenal suture technique. Lateral row soft tissue repair was performed with #2 FiberWire [id number] sutures. The pectoralis was repaired with #2 FiberWire [id number] sutures reinforcing the biceps tendon tenodesis. The arm was taken through a range of motion which demonstrated 140 degrees forward flexion 90 degrees abduction and 70 degrees external rotation without tension on repair. The implant was stable through the range of motion tested. The wound was copiously irrigated. 2 Hemovac drains were placed. The deltopectoral interval was closed with [id number] #1 Vicryl sutures. The subcutaneous tissues were closed with 2-0 Vicryl sutures. The skin was closed with surgical danuta. Standard sterile dressings were applied and a shoulder immobilizer. [place], my physician surgical assistant certified acted as first aid instructor throughout the procedure .He performed functions including patient positioning, arm positioning, prepping and draping, soft tissue retraction, instrument management, suture management will participate in the postoperative care of the patient. I attest to the content of the Intraoperative Record and any orders documented therein. Any exceptions are noted below.
--- NOTE | 2024-09-15 17:15 | Anesthesiology Progress Note ---
Date of Service September 15, 2024 Anesthesia Post Procedure Vital Signs Vital Signs: Temp Pulse Resp BP Pulse Ox O2 Del Method O2 Flow Rate 09/15/24 16:55 92 H 20 132/71 92 Room Air 0 09/15/24 16:40 84 19 137/77 95 Room Air 0 09/15/24 16:25 36.7 C 87 17 138/77 94 Room Air 0 09/15/24 16:15 92 H 20 134/75 92 Room Air 0 09/15/24 16:05 89 20 140/83 100 Oxymask 4 09/15/24 15:55 89 20 140/84 100 Oxymask 4 09/15/24 15:45 36.0 C L 97 H 17 130/98 98 Oxymask 8 09/15/24 10:23 36.7 C 57 L 20 159/87 H 100 Room Air Transfer of Care Handoff Completed per policy Notes Mental Status: alert / awake / arousable and participated in evaluation Patient Amnestic to Procedure: Yes Nausea / Vomiting: adequately controlled Pain: adequately controlled Airway Patency, RR, SpO2: stable & adequate BP & HR: stable & adequate Hydration State: stable & adequate Anesthetic Complications: no major complications apparent and Pt Satisfied with anesthetic care
[2024-09-15] MEDS ORDERED: diphenhydrAMINE Capsule 25 MG CAP PO PRN (17:23)
[2024-09-15] MEDS ORDERED: NALOXONE HCL 0.4 MG/1 ML VIAL/CARP IV PRN (17:23)
[2024-09-15] MEDS ORDERED: KETOROLAC TROMETHAMINE 15 MG/ML VIAL IV PRN (17:23)
[2024-09-15] MEDS ORDERED: ALUMINUM/MAGNESIUM SUSP 30 ML UDC PO PRN (17:23)
[2024-09-15] MEDS ORDERED: METOCLOPRAMIDE HCL INJ 5 MG/ML 2 ML VIAL IV PRN (17:23)
[2024-09-15] MEDS ORDERED: bisacodyL 10 MG SUPP PR PRN (17:23)
[2024-09-15] MEDS ORDERED: oxyCODONE HCL IR 5 MG TAB (IMMEDIATE RELEASE) PO PRN (17:23)
[2024-09-15] MEDS ORDERED: PRAMOXINE TOP PRN (17:23)
[2024-09-15] MEDS ORDERED: HYDROmorphone INJ 0.5 MG/0.5 ML SYR IV PRN (17:23)
[2024-09-15] MEDS ORDERED: MAGNESIUM HYDROXIDE SUSP 30 ML UDC PO PRN (17:23)
[2024-09-15] MEDS ORDERED: [UNRECOGNIZED DRUG - OTHER] TOP PRN (17:23)
[2024-09-15] MEDS: BUPIVACAINE LIPOSOME 1.3% 133 MG/10 ML VIAL ONE (17:35)
[2024-09-15] MEDS: TRANEXAMIC ACID / 0.7% NACL 1,000 MG/100 ML BAG IV SCH (20:33)
[2024-09-15] MEDS: ASPIRIN 81 MG ECTAB PO SCH (20:35)
[2024-09-15] MEDS: ARTIFICIAL TEARS OP SCH (20:35)
[2024-09-15] MEDS: DOCUSATE SODIUM 100 MG CAP PO SCH (20:35)
[2024-09-15] MEDS: SENNA 8.6 MG TAB PO SCH (20:35)
[2024-09-15] MEDS: ONDANSETRON INJ 2 MG/ML 2 ML VIAL IV PRN (20:59)
[2024-09-16 07:41] LABS: Basophils # (auto) 0.01 K/uL (0.00-0.20); Basophils % (auto) 0.1 %; Eosinophils # (auto) 0.01 K/uL (0.00-0.50); Eosinophils % (auto) 0.1 %; Hematocrit (blood only) 28.7 % (37.0-47.0); Hemoglobin 9.4 g/dl (12.0-16.0); Immature Granulocytes # (auto) 0.02 K/uL (0.01-0.20); Immature Granulocytes % (auto) 0.2 %; Lymphocytes # (auto) 1.18 K/uL (1.20-3.40); Lymphocytes % (auto) 12.4 %; Mean Corpuscular Hemoglobin 26.3 pg (25.0-34.0); Mean Corpuscular Hgb Conc 32.8 g/dL (32.0-36.0); Mean Corpuscular Volume 80.4 fL (80.0-100.0); Mean Platelet Volume 8.5 fL (9.4-12.4); Monocytes # (auto) 0.73 K/uL (0.11-0.59); Monocytes % (auto) 7.7 %; Neutrophils # (auto) 7.54 K/uL (1.40-6.50); Neutrophils % (auto) 79.5 %; Platelet Count 284 K/uL (130-400); RDW Coefficient of Variation 15.5 % (11.5-14.5); RDW Standard Deviation 45.1 fL (36.4-46.3); Red Blood Count 3.57 M/uL (4.20-5.40); White Blood Count 9.49 K/ul (4.8-10.8)
[2024-09-16 08:13] LABS: BUN Creatinine Ratio 27.9 (10-20); Calcium 8.7 mg/dl (8.6-10.3)
[2024-09-16] MEDS: ROSUVASTATIN CALCIUM 10 MG TAB PO SCH (08:14)
[2024-09-16] MEDS: MULTIVITAMIN TAB PO SCH (08:14)
[2024-09-16] MEDS: MAGNESIUM OXIDE 400 MG TAB PO SCH (08:14)
[2024-09-16] MEDS: DULoxetine HCL 20 MG CAP PO SCH (08:14)
[2024-09-16] MEDS: METOPROLOL SUCC 25MG EXT REL TAB PO SCH (08:14)
[2024-09-16] MEDS: FLUTICASONE PROPIONATE NA SPR 16 GM BTL SCH (08:14)
[2024-09-16] MEDS: dexAMETHasone 10 MG in SYRINGE 0 ML IV SCH (08:14)
[2024-09-16] MEDS: ZINC SULFATE 220 MG CAPSULE PO SCH (08:14)
--- NOTE | 2024-09-16 08:20 | Orthopedic Progress Note ---
Date of Service September 16, 2024 Assessment & Plan (1) Osteoarthritis of right glenohumeral joint: Plan: Postop day 1 reverse shoulder replacement biceps tenodesis. Discussed safe range of motion activities post reverse replacement. Patient did see OT PT prior to discharge. Drain can be discontinued prior to discharge. Follow-up in 2 weeks for staple removal. Severe end-stage glenohumeral osteoarthritis right shoulder with rotator cuff tendinopathy as well and biceps tendinopathy. Best treatment option is to proceed with reverse total shoulder arthroplasty with biceps tenodesis. (2) Tendinopathy of right rotator cuff: (3) Biceps tendinopathy of right upper extremity: Admission and Anticipated Discharge Date Admission Date: September 15, 2024 Subjective Minor pain only Review of Systems Review of Systems: Noncontributory Physical Exam Musculoskeletal: Still under effects of nerve block but has some motor function returned. Cir culation normal. Results & Data Vital Signs (Past 12 Hours) Vital Signs Temp Pulse Resp BP Pulse Ox O2 Del Method 09/16/24 07:42 37.4 C 74 18 116/62 96 Room Air 09/16/24 03:00 37.0 C 68 18 119/69 93 Room Air 09/15/24 23:00 36.5 C 75 18 123/70 98 Room Air Diagnostic Findings Well aligned reverse shoulder replacement right shoulder
== END 2024-09-16 12:01 | disposition home or self-care (01) ==
LOC: 3N 10:02 → ASU 10:02